=== PATIENT | male | born 1955 | race Caucasian/White ===

== ENCOUNTER 2017-12-23 11:33 | Inpatient (IN) | payer OTHER ==
[2017-12-23] MEDS ORDERED: IBUPROFEN 400 MG TAB ONE (12:15)
[2017-12-23] MEDS ORDERED: NA CHLORIDE 0.9% 1,000 ML ONE ×3 (12:15→15:45)
[2017-12-23] MEDS ORDERED: IBUPROFEN 200 MG TAB PO ONE (12:15)
[2017-12-23 12:20] LABS: Urine Blood 2+ (NEG); Urine Glucose NEGATIVE (NEG); Urine Protein 2+ (NEG); Urine pH 5.5 (5.0-7.0)
[2017-12-23] MEDS ORDERED: CEFTRIAXONE/SWI 1gm 1 GM/10 ML SYR ONE (12:29)
[2017-12-23 12:30] LABS: Potassium 4.1 mmol/L (3.5-5.1)
[2017-12-23 12:33] LABS: Absolute Lymphocytes (CBC) 0.7 K/uL (0.7-4.9); Absolute Neutrophil 15.6 K/uL (1.8-8.0); Basophils % 0.5 % (0-1.3); Eosinophils % 0.2 % (0-4.4); Lymphocytes % 4.2 % (15.3-44.8); MCV 88.9 fL (80-100); MPV 8.3 fL (7.6-11.3); Monocytes % 5.6 % (3.3-12.3); RBC Red Blood Cell Count 4.72 M/uL (4.33-5.43)
[2017-12-23 12:37] LABS: Urine Bacteria >50 /HPF (NONE SEEN)
[2017-12-23 12:38] LABS: Urine Culture Reflex Order REFLEXED
[2017-12-23] MEDS ORDERED: NA CHLORIDE 0.9% 500 ML ONE (13:03)
--- NOTE | 2017-12-23 13:05 | EDPHYS ---
Physician Documentation [facility] Name: Addison Kaiser Age: 61 yrs Sex: Male : 1955 Arrival Date: 12/23/2017 Time: 11:37 Bed 5 Private MD: Tramaine Nur H ED Physician Edgar Louis HPI: 12/23 12:59 This 61 yrs old Male presents to ER via Ambulatory with complaints of Urinary kb Problem, Fever. 12:59 The patient presents with urinary symptoms, dysuria, frequency. Onset: The kb symptoms/episode began/occurred yesterday. Modifying factors: The symptoms are alleviated by nothing, the symptoms are aggravated by urinating. Associated signs and symptoms: Pertinent positives: dysuria, fever, urinary frequency, Pertinent negatives: constipation, cramping, diarrhea, dyspareunia, hematuria, nausea, vaginal bleeding, vaginal discharge, vomiting. Severity of symptoms: At their worst the symptoms were moderate, in the emergency department the symptoms are unchanged. The patient has not experienced similar symptoms in the past. The patient has not recently seen a physician. Historical: - Allergies: 11:45 No Known Allergies; aj - Home Meds: 11:45 None [Active]; aj - PMHx: 11:45 None; aj - PSHx: 11:45 TBI; aj - Immunization history:: Adult Immunizations up to date. - Social history:: Smoking status: Patient/guardian denies using tobacco. - Ebola Screening: : Patient negative for fever greater than or equal to 101.5 degrees Fahrenheit, and additional compatible Ebola Virus Disease symptoms Patient denies exposure to infectious person Patient denies travel to an Ebola-affected area in the 21 days before illness onset No symptoms or risks identified at this time. ROS: 12:58 Neck: Negative for injury, pain, and swelling, Cardiovascular: Negative for chest pain, kb palpitations, and edema, Respiratory: Negative for shortness of breath, cough, wheezing, and pleuritic chest pain, Abdomen/GI: Negative for abdominal pain, nausea, vomiting, diarrhea, and constipation, Back: Negative for injury and pain, MS/Extremity: Negative for injury and deformity, Skin: Negative for injury, rash, and discoloration, Neuro: Negative for headache, weakness, numbness, tingling, and seizure. 12:58 Constitutional: Positive for fever, Negative for body aches, chills, fatigue, malaise, poor PO intake, weight loss. 12:58 : Positive for urinary symptoms, urinary frequency, burning with urination. Exam: 12:58 Constitutional: This is a well developed, well nourished patient who is awake, alert, kb and in no acute distress. Head/Face: Normocephalic, atraumatic. Chest/axilla: Normal chest wall appearance and motion. Nontender with no deformity. No lesions are appreciated. Cardiovascular: Regular rate and rhythm with a normal S1 and S2. No gallops, murmurs, or rubs. Normal PMI, no JVD. No pulse deficits. Respiratory: Lungs have equal breath sounds bilaterally, clear to auscultation and percussion. No rales, rhonchi or wheezes noted. No increased work of breathing, no retractions or nasal flaring. Abdomen/GI: Soft, non-tender, with normal bowel sounds. No distension or tympany. No guarding or rebound. No evidence of tenderness throughout. Back: No spinal tenderness. No costovertebral tenderness. Full range of motion. Skin: Warm, dry with normal turgor. Normal color with no rashes, no lesions, and no evidence of cellulitis. MS/ Extremity: Pulses equal, no cyanosis. Neurovascular intact. Full, normal range of motion. Neuro: Awake and alert, GCS 15, oriented to person, place, time, and situation. Cranial nerves II-XII grossly intact. Motor strength 5/5 in all extremities. Sensory grossly intact. Cerebellar exam normal. Normal gait. Vital Signs: 11:45 BP 97 / 67; Pulse 122; Resp 20; Temp 99.8; Pulse Ox 99% on R/A; Weight 78.02 kg; Height aj 5 ft. 9 in. (175.26 cm); 11:50 BP 117 / 20; Pulse 120; Resp 18; Pulse Ox 100% on R/A; hj 12:13 BP 110 / 65; Pulse 114; Resp 18; Pulse Ox 99% on R/A; hj 12:41 BP 112 / 69; Pulse 110; Resp 18; Pulse Ox 99% on R/A; hj 13:13 BP 119 / 78; Pulse 112; Resp 18; Pulse Ox 100% on R/A; hj 14:06 BP 98 / 71; Pulse 117; Resp 18; Pulse Ox 97% on R/A; hj 14:25 BP 101 / 69; Pulse 115; Resp 18; Temp 102.8(O); Pulse Ox 98% on R/A; la1 14:55 BP 102 / 72; Pulse 118; Resp 18; Pulse Ox 98% on R/A; hj 15:15 BP 100 / 69; Pulse 116; Resp 18; Temp 99.6(O); Pulse Ox 98% on R/A; hj 15:46 BP 100 / 65; Pulse 105; Resp 18; Pulse Ox 98% on R/A; hj 11:45 Body Mass Index 25.40 (78.02 kg, 175.26 cm) aj 14:06 NS running, 600 ml left from the 30mg/kg order; hj MDM: 11:48 Patient medically screened. kb 12:58 Data reviewed: vital signs, nurses notes. Data interpreted: Pulse oximetry: on room air kb is 99 %. Interpretation: normal. 13:00 Counseling: I had a detailed discussion with the patient and/or guardian regarding: the kb historical points, exam findings, and any diagnostic results supporting the discharge/admit diagnosis, lab results, the need for further work-up and treatment in the hospital. 13:03 Physician consultation: Riley Paulino MD was called at 13:03, message left. kb 12/23 11:51 Order name: Urine Culture kb 12/23 11:51 Order name: Urine Microscopic Only; Complete Time: 12:42 kb 12/23 11:51 Order name: CBC with Diff; Complete Time: 13:28 kb 12/23 11:51 Order name: Basic Metabolic Panel; Complete Time: 12:31 kb 12/23 11:51 Order name: Lactate; Complete Time: 12:44 kb 12/23 11:51 Order name: Blood Culture Adult (2) kb 12/23 11:51 Order name: Procalcitonin; Complete Time: 12:53 kb 12/23 12:08 Order name: Urine Dipstick--Ancillary (enter results); Complete Time: 12:20 eb 12/23 12:38 Order name: CBC Smear Scan; Complete Time: 13:28 EDMS 12/23 13:13 Order name: Troponin (emerg Dept Use Only); Complete Time: 13:59 kb 12/23 13:13 Order name: LFT's; Complete Time: 13:59 kb 12/23 15:42 Order name: Lactate Sepsis 2 HR Follow-up; Complete Time: 15:46 EDIL 12/23 11:51 Order name: Urine Dipstick-Ancillary (obtain specimen); Complete Time: 12:03 kb 12/23 11:51 Order name: IV Start; Complete Time: 12:07 kb 12/23 13:13 Order name: EKG; Complete Time: 13:14 kb 12/23 13:13 Order name: EKG - Nurse/Tech; Complete Time: 13:26 kb Administered Medications: 12:00 Drug: NS 0.9% 1000 ml Route: IV; Rate: 1000 ml; Site: left antecubital; hj 15:57 Follow up: IV Status: Completed infusion hj 12:00 Drug: Ibuprofen 600 mg Route: PO; hj 12:21 Follow up: Response: No adverse reaction; Temperature is decreased hj 12:20 Drug: Rocephin - (cefTRIAXone) 1 grams Route: IVPB; Infused Over: 30 mins; Site: left hj antecubital; 12:29 Follow up: IV Status: Completed infusion hj 13:00 Drug: NS 0.9% (30 ml/kg) 30 ml/kg Route: IV; Rate: bolus; Site: right antecubital; la1 15:47 Follow up: IV Status: Completed infusion hj 14:25 Drug: Tylenol 1000 mg Route: PO; la1 15:21 Follow up: Response: No adverse reaction; Temperature is decreased Disposition: 17:36 Co-signature as Attending Physician, Edgar Louis MD. Disposition: 12/23/17 13:04 Hospitalization ordered by Bernardo Weller for Inpatient Admission. Preliminary diagnosis are Urinary tract infection, site not specified, Sepsis, unspecified organism. - Bed requested for Telemetry/MedSurg (Inpatient). - Status is Inpatient Admission. hj - Condition is Stable. - Problem is new. - Symptoms are unchanged. UTI on Admission? No Signatures: Dispatcher [employer] EDIL Shawna Tabares FNP-C FNP-Vijaya Little RN Olivia Alvarado RN RN aj Attema, Lee, RN RN la1 Matt Escalante RN RN hj Starr, Gregory, MD MD Corrections: (The following items were deleted from the chart) 13:30 13:04 Hospitalization Ordered by Riley Paulino MD for Inpatient Admission. Preliminary kb diagnosis is Urinary tract infection, site not specified; Sepsis, unspecified organism. Bed requested for Telemetry/MedSurg (Inpatient). Status is Inpatient Admission. Condition is Stable. Problem is new. Symptoms are unchanged. UTI on Admission? No. kb 15:40 13:30 12/23/2017 13:04 Hospitalization Ordered by Bernardo Weller MD for Inpatient dw Admission. Preliminary diagnosis is Urinary tract infection, site not specified; Sepsis, unspecified organism. Bed requested for Telemetry/MedSurg (Inpatient). Status is Inpatient Admission. Condition is Stable. Problem is new. Symptoms are unchanged. UTI on Admission? No. kb 16:03 15:40 12/23/2017 13:04 Hospitalization Ordered by Bernardo Weller MD for Inpatient hj Admission. Preliminary diagnosis is Urinary tract infection, site not specified; Sepsis, unspecified organism. Bed requested for Telemetry/MedSurg (Inpatient). Status is Inpatient Admission. Condition is Stable. Problem is new. Symptoms are unchanged. UTI on Admission? No. dw
--- NOTE | 2017-12-23 13:05 | ER ---
Nurse's Notes [facility] Name: Addison Kaiser Age: 61 yrs Sex: Male : 1955 Arrival Date: 12/23/2017 Time: 11:37 Bed 5 Private MD: Tramaine Nur H Diagnosis: Urinary tract infection, site not specified;Sepsis, unspecified organism Presentation: 12/23 11:44 Presenting complaint: Patient states: Burning with urination and fever since yesterday. aj Transition of care: patient was not received from another setting of care. Onset of symptoms was December 21, 2017. Risk Assessment: Do you want to hurt yourself or someone else? Patient reports no desire to harm self or others. Care prior to arrival: None. 11:44 Method Of Arrival: Ambulatory 11:44 Acuity: LILIANA 3 hj 11:45 Initial Sepsis Screen: Does the patient meet any 2 criteria? HR > 90 bpm. No. Patient's aj initial sepsis screen is negative. Does the patient have a suspected source of infection? Yes: Dysuria/Frequency/Urgency/UTI. 11:47 Note Tylenol taken at 0730 CANDLE [employer]. aj Triage Assessment: 11:45 General: Appears in no apparent distress. uncomfortable, Behavior is calm, cooperative, aj appropriate for age. Pain: Denies pain. 11:45 Neuro: Level of Consciousness is awake, alert, obeys commands, Oriented to person, aj place, time, situation, Appropriate for age. Respiratory: Airway is patent Respiratory effort is even, unlabored, Respiratory pattern is regular, symmetrical. : Reports burning with urination, urinary frequency. Derm: Skin is intact, is healthy with good turgor, Skin is dry, Skin is normal, Skin temperature is warm. Historical: - Allergies: 11:45 No Known Allergies; aj - Home Meds: 11:45 None [Active]; aj - PMHx: 11:45 None; aj - PSHx: 11:45 TBI; aj - Immunization history:: Adult Immunizations up to date. - Social history:: Smoking status: Patient/guardian denies using tobacco. - Ebola Screening: : Patient negative for fever greater than or equal to 101.5 degrees Fahrenheit, and additional compatible Ebola Virus Disease symptoms Patient denies exposure to infectious person Patient denies travel to an Ebola-affected area in the 21 days before illness onset No symptoms or risks identified at this time. Screenin:50 Abuse screen: Denies threats or abuse. Denies injuries from another. Nutritional hj screening: No deficits noted. Tuberculosis screening: No symptoms or risk factors identified. Fall Risk None identified. Assessment: 11:51 General: Appears in no apparent distress. uncomfortable, Behavior is calm, cooperative, hj appropriate for age. Pain: Denies pain. Neuro: Level of Consciousness is awake, alert, obeys commands, Oriented to person, place, time, situation, Appropriate for age. Cardiovascular: Capillary refill < 3 seconds Patient's skin is warm and dry. Respiratory: Airway is patent Respiratory effort is even, unlabored, Respiratory pattern is regular, symmetrical. GI: No signs and/or symptoms were reported involving the gastrointestinal system. : Reports. EENT: No signs and/or symptoms were reported regarding the EENT system. Derm: No signs and/or symptoms reported regarding the dermatologic system. Musculoskeletal: No signs and/or symptoms reported regarding the musculoskeletal system. 12:41 Reassessment: Patient and/or family updated on plan of care and expected duration. Pain hj level reassessed. Patient is alert, oriented x 3, equal unlabored respirations, skin warm/dry/pink. awaiting results and POC;. 13:13 Reassessment: Patient and/or family updated on plan of care and expected duration. Pain hj level reassessed. Patient is alert, oriented x 3, equal unlabored respirations, skin warm/dry/pink. awaiting room placement;. 14:34 Reassessment: Patient and/or family updated on plan of care and expected duration. Pain hj level reassessed. Patient is alert, oriented x 3, equal unlabored respirations, skin warm/dry/pink. BP is on the 90's over 80's; Md notified;. 14:37 Reassessment: called Dr. Paulino for [employer] orders; left a voicemail to call back and hj put orders in [employer];. 14:54 Reassessment: Patient and/or family updated on plan of care and expected duration. Pain hj level reassessed. Patient is alert, oriented x 3, equal unlabored respirations, skin warm/dry/pink. 15:13 Reassessment: called to Dr. Weller covering for Dr. Paulino, requested to put orders to [facility], call transferred to MARTIN Matos;. 15:33 Reassessment: orders in [facility]; support service tech informed ready to move;. Vital Signs: 11:45 BP 97 / 67; Pulse 122; Resp 20; Temp 99.8; Pulse Ox 99% on R/A; Weight 78.02 kg; Height aj 5 ft. 9 in. (175.26 cm); 11:50 BP 117 / 20; Pulse 120; Resp 18; Pulse Ox 100% on R/A; hj 12:13 BP 110 / 65; Pulse 114; Resp 18; Pulse Ox 99% on R/A; hj 12:41 BP 112 / 69; Pulse 110; Resp 18; Pulse Ox 99% on R/A; hj 13:13 BP 119 / 78; Pulse 112; Resp 18; Pulse Ox 100% on R/A; hj 14:06 BP 98 / 71; Pulse 117; Resp 18; Pulse Ox 97% on R/A; hj 14:25 BP 101 / 69; Pulse 115; Resp 18; Temp 102.8(O); Pulse Ox 98% on R/A; la1 14:55 BP 102 / 72; Pulse 118; Resp 18; Pulse Ox 98% on R/A; hj 15:15 BP 100 / 69; Pulse 116; Resp 18; Temp 99.6(O); Pulse Ox 98% on R/A; hj 15:46 BP 100 / 65; Pulse 105; Resp 18; Pulse Ox 98% on R/A; hj 11:45 Body Mass Index 25.40 (78.02 kg, 175.26 cm) aj 14:06 NS running, 600 ml left from the 30mg/kg order; hj ED Course: 11:37 Patient arrived in ED. mr 11:37 Tramaine Nur DO is Private Physician. mr 11:45 Triage completed. aj 11:45 Arm band placed on right wrist. Patient placed in an exam room. aj 11:47 [facility]ares [facility]-C [facility] kb 11:47 Edgar Louis MD is Attending Physician. kb 11:48 Matt Escalante, JACK is Primary Nurse. hj 11:50 Patient has correct armband on for positive identification. Placed in gown. Bed in low hj position. Call light in reach. Side rails up X 1. Adult w/ patient. 12:00 Initial lab(s) drawn, by me, sent to lab. Inserted saline lock: 22 gauge in left hj antecubital area, using aseptic technique. Blood collected. 12:00 First set of blood cultures drawn by me. hj 12:03 Urine collected: clean catch specimen, cloudy, kahlil colored. jb1 12:15 Second set of blood cultures drawn by me. hj 13:03 Riley Paulino MD is Hospitalizing Provider. kb 13:30 Bernardo Weller MD is Hospitalizing Provider. kb 15:56 No provider procedures requiring assistance completed. Patient admitted, IV remains in hj place. intact. Administered Medications: 12:00 Drug: NS 0.9% 1000 ml Route: IV; Rate: 1000 ml; Site: left antecubital; hj 15:57 Follow up: IV Status: Completed infusion hj 12:00 Drug: Ibuprofen 600 mg Route: PO; hj 12:21 Follow up: Response: No adverse reaction; Temperature is decreased hj 12:20 Drug: Rocephin - (cefTRIAXone) 1 grams Route: IVPB; Infused Over: 30 mins; Site: left hj antecubital; 12:29 Follow up: IV Status: Completed infusion hj 13:00 Drug: NS 0.9% (30 ml/kg) 30 ml/kg Route: IV; Rate: bolus; Site: right antecubital; la1 15:47 Follow up: IV Status: Completed infusion hj 14:25 Drug: Tylenol 1000 mg Route: PO; la1 15:21 Follow up: Response: No adverse reaction; Temperature is decreased Outcome: 13:04 Decision to Hospitalize by Provider. kb 15:56 Admitted to Med/surg accompanied by tech, family with patient, via wheelchair, room hj 229, with chart, Report called to JACK Bai 15:56 Condition: stable 15:56 Instructed on the need for admit, Demonstrated understanding of instructions. 16:03 Patient left the ED. Signatures: Kavon Ritter jb1 Shawna Tabares, DIRECTOR OF LABORATORY OPERATIONS-C DIRECTOR OF LABORATORY OPERATIONS-Ckb Olivia Moe RN RN aj Rivera, Maria mr Attema, Lee, RN RN la1 Joaquin, Henry, RN RN Corrections: (The following items were deleted from the chart) 11:46 11:44 Initial Sepsis Screen: Does the patient meet any 2 criteria? No. Patient's aj initial sepsis screen is negative. Does the patient have a suspected source of infection? No. Patient's initial sepsis screen is negative. saleem 12:13 11:44 Acuity: LILIANA 2 aj 14:09 14:06 BP 100 / 71; Pulse 117bpm; Resp 18bpm; Pulse Ox 97% RA; [facility] 14:39 14:37 Reassessment: called Dr. Paulino for [facility] orders; [facility]
[2017-12-23 13:27] LABS: Blood Morphology Comment NOT SEEN (NOT SEEN); Platelet Estimate ADEQ; Urine White Blood Cell Casts OK
[2017-12-23 13:57] LABS: ALT/SGPT 24 U/L (12-78); AST/SGOT 16 U/L (15-37); Albumin 3.5 g/dL (3.4-5.0); Alkaline Phosphatase 53 U/L (45-117); Bilirubin Direct 0.5 mg/dL (0-0.2); Bilirubin Total 1.9 mg/dL (0.2-1.0); Protein, Total 7.4 g/dL (6.4-8.2); Troponin (Emerg Dept Use Only) < 0.02 ng/mL (0.0-0.045)
[2017-12-23] MEDS ORDERED: ACETAMINOPHEN 500 MG TAB ONE (14:26)
[2017-12-23] MEDS ORDERED: NA CHLORIDE 0.9% 1,000 ML IV SCH (16:00)
[2017-12-23 16:54] VITALS: BMI 26.6
[2017-12-23] MEDS ORDERED: NA CHLORIDE 0.9% 500 ML IV ONE (16:58)
[2017-12-23] MEDS ORDERED: INFLUENZA VACCINE (for 3y+) 0.5 ML DOSE IMVAC ONE (17:00)
--- NOTE | 2017-12-23 17:02 | P.HP ---
Certification for Inpatient Patient admitted to: Inpatient With expected LOS: >2 Midnights Patient will require the following post-hospital care: None Practitioner: I am a practitioner with admitting privileges, knowledge of patient current condition, hospital course, and medical plan of care. Services: Services provided to patient in accordance with Admission requirements found in Title 42 Section 412.3 of the Code of Federal Regulations Patient History Date of Service: 12/23/17 Reason for admission: uti History of Present Illness: 61 y/o man otherwise healthy presented to ER fever chills x 2 days, muscle aches. He aslo has mild dysuria with burning for several days. Temp was 102.6. He was found to have UTI and sepsis lactic acid and hypotension. He was given Rocephin 1 g IV and NS at ER, with improvement. Last lactic was normal. 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 moist/pink, EOMI, Sclerae nonicteric Neck: Supple, 2+ carotid pulse no bruit, No LAD, Without JVD or thyroid abnormality Respiratory: Clear to auscultation bilaterally, Normal air movement Cardiovascular: Regular rate/rhythm, Normal S1 S2 Gastrointestinal: Normal bowel sounds, No tenderness Musculoskeletal: No tenderness Integumentary: No rashes Neurological: Normal gait, Normal speech, Normal strength at 5/5 x4 extr, Normal tone, Normal affect Lymphatics: No axilla or inguinal lymphadenopathy - Studies Laboratory Data (last 24 hrs) 12/23/17 12:00: Total Bilirubin 1.9 H, AST 16, ALT 24, Alkaline Phosphatase 53 12/23/17 12:00: Sodium 140, Potassium 4.1, BUN 22 H, Creatinine 1.60 H, Glucose 141 H 12/23/17 12:00: WBC 17.5 H, Hgb 14.6, Hct 42.0, Plt Count 180 Assessment and Plan - Problems (Diagnosis) (1) Sepsis associated hypotension Current Visit: Yes Status: Acute (2) UTI (urinary tract infection), bacterial Current Visit: Yes Status: Acute - Plan --Rocephin 1 g IV a12H --NS 120 ml --Bolus one more 500 ml NS - Advance Directives Does patient have a Living Will: No Does patient have a Durable POA for Healthcare: No
[2017-12-23] MEDS: NA CHLORIDE 0.9% 1,000 ML IV SCH ×2 (17:15→22:35)
[2017-12-23 17:26] LABS: Urine Appearance CLOUDY; Urine Bilirubin NEGATIVE (NEG); Urine Blood TRACE (NEG); Urine Color DK YELLOW; Urine Glucose NEGATIVE (NEG); Urine Protein 1+ (NEG); Urine Specific Gravity 1.025 (1.005-1.030); Urine pH 5.5 (5.0-7.0)
[2017-12-23 17:28] LABS: Urine Microscopic Reflex ORDER UMIC
[2017-12-23 18:41] LABS: Urine Bacteria 20-50 /HPF (NONE SEEN); Urine RBC <5 /HPF (NONE SEEN)
[2017-12-23 18:42] LABS: Urine Amorphous Sediment 2+ /HPF (NONE SEEN); Urine Culture Reflex Order REFLEXED
[2017-12-23] MEDS: CEFTRIAXONE/SWI 1gm 1 GM/10 ML SYR IV SCH (20:17)
[2017-12-23] MEDS ORDERED: TAMSULOSIN 0.4 MG SR CAP PO ONE (20:56)
[2017-12-24] MEDS: ACETAMINOPHEN 325 MG TABLET PO PRN ×3 (00:58→17:59)
[2017-12-24] MEDS: NA CHLORIDE 0.9% 1,000 ML IV SCH ×3 (06:02→16:38)
[2017-12-24 06:05] LABS: Absolute Lymphocytes (CBC) 0.8 K/uL (0.7-4.9); Absolute Monocytes 0.8 K/uL (0.1-1.3); Basophils % 0.2 % (0-1.3); Eosinophils % 0.3 % (0-4.4); Hematocrit 35.3 % (39.6-49.0); Lymphocytes % 4.9 % (15.3-44.8); MCH 30.8 pg (27.0-35.0); MCV 89.8 fL (80-100); MPV 8.1 fL (7.6-11.3); Monocytes % 4.9 % (3.3-12.3); RBC Red Blood Cell Count 3.94 M/uL (4.33-5.43)
[2017-12-24 06:37] LABS: Albumin 2.6 g/dL (3.4-5.0); Bilirubin Total 1.1 mg/dL (0.2-1.0); Potassium 4.5 mmol/L (3.5-5.1); Protein, Total 5.8 g/dL (6.4-8.2)
--- NOTE | 2017-12-24 06:46 | EKG ---
Test Date: 2017-12-23 Test Time: 13:23:34 Cutter Aluminum Sheet: JOSR MEASUREMENT RESULTS: Intervals: Rate: 112 IN: 140 QRSD: 88 QT: 308 QTc: 420 [place]: P: 49 IN: 140 QRS: 10 T: 19 INTERPRETIVE STATEMENTS: Sinus tachycardia Otherwise normal ECG Compared to ECG 06/29/2017 13:40:33 Sinus rhythm no longer present Electronically Signed On 12-24-17 06:45:04 CDT by Fernando Valle
[2017-12-24] MEDS: CEFTRIAXONE/SWI 1gm 1 GM/10 ML SYR IV SCH ×2 (08:48→21:18)
--- NOTE | 2017-12-24 13:16 | P.PN ---
Subjective Date of Service: 12/24/17 Chief Complaint: uti feels better, still has frequency Physical Examination - Vital Signs Temperature: 100.4 F Blood Pressure: 125/55 Pulse: 104 Respirations: 16 Pulse Ox (%): 96 - Physical Exam General: Alert, In no apparent distress HEENT: Atraumatic, PERRLA, EOMI Neck: Supple, JVD not distended Respiratory: Clear to auscultation bilaterally, Normal air movement Cardiovascular: Regular rate/rhythm, Normal S1 S2 Gastrointestinal: Normal bowel sounds, No tenderness Musculoskeletal: No tenderness Integumentary: No rashes Neurological: Normal speech, Normal tone, Normal affect Lymphatics: No axilla or inguinal lymphadenopathy - Studies Laboratory Data (last 24 hrs) 12/23/17 12:00: Total Bilirubin 1.9 H, AST 16, ALT 24, Alkaline Phosphatase 53 Medications List Reviewed: Yes Assessment And Plan - Current Problems (Diagnosis) (1) Sepsis associated hypotension Current Visit: Yes Status: Acute (2) UTI (urinary tract infection), bacterial Current Visit: Yes Status: Acute - Plan --Rocephin 1 g IV a12H --NS 120 ml --CT abd pelvis today --Blood Cx Ucx pending; Ucx GNR
--- NOTE | 2017-12-24 18:41 | RAD REPORT ---
EXAM DESCRIPTION: CTAbdomen Pelvis W Contrast - 12/24/2017 5:48 pm CLINICAL HISTORY: Abdominal pain. abd pain COMPARISON: No comparisons TECHNIQUE: Biphasic CT imaging of the abdomen and pelvis was performed with 100 ml non-ionic IV cont rast. All CT scans are performed using dose optimization technique as appropriate and may include automated exposure control or mA/KV adjustment according to patient size. FINDINGS: The lung bases are clear.Trace pleural fluid is present bilaterally. The liver, spleen, pancreas, adrenal glands and kidneys are within normal limits. No bowel obstruction, free air, free fluid or abscess. The appendix is normal. Sigmoid diverticulosi s coli is present without diverticulitis. No evidence of significant lymphadenopathy. No suspicious bony findings. Significant prostatomegaly is seen. Mild inflammatory fat stranding in the pelvis anteriorly. IMPRESSION: Significant prostatomegaly with mild inflammation in the anterior pelvic fat could indic ate bladder or prostate infection. Sigmoid diverticulosis coli without diverticulitis.
[2017-12-24 23:36] VITALS: O2SAT 97
[2017-12-25] MEDS: NA CHLORIDE 0.9% 1,000 ML IV SCH ×2 (00:25→08:44)
[2017-12-25 05:34] LABS: Absolute Lymphocytes (CBC) 1.2 K/uL (0.7-4.9); Absolute Neutrophil 10.2 K/uL (1.8-8.0); Basophils % 0.3 % (0-1.3); Eosinophils % 3.4 % (0-4.4); Hematocrit 32.6 % (39.6-49.0); Lymphocytes % 9.1 % (15.3-44.8); MCH 31.2 pg (27.0-35.0); MCV 88.5 fL (80-100); MPV 8.7 fL (7.6-11.3); Monocytes % 7.6 % (3.3-12.3); RBC Red Blood Cell Count 3.68 M/uL (4.33-5.43)
[2017-12-25 05:41] LABS: Albumin 2.4 g/dL (3.4-5.0); Bilirubin Total 0.6 mg/dL (0.2-1.0); Potassium 3.5 mmol/L (3.5-5.1); Protein, Total 5.7 g/dL (6.4-8.2)
[2017-12-25] MEDS: CEFTRIAXONE/SWI 1gm 1 GM/10 ML SYR IV SCH (08:43)
--- NOTE | 2017-12-25 17:55 | P.PN ---
Subjective Date of Service: 12/25/17 Chief Complaint: uti Doing much better today; less urine frequency, fever last night Physical Examination - Vital Signs Temperature: 99.4 F Blood Pressure: 132/80 Pulse: 64 Respirations: 18 Pulse Ox (%): 96 - Physical Exam General: Alert, In no apparent distress HEENT: Atraumatic, PERRLA, EOMI Neck: Supple, JVD not distended Respiratory: Clear to auscultation bilaterally, Normal air movement Cardiovascular: Regular rate/rhythm, Normal S1 S2 Gastrointestinal: Normal bowel sounds, No tenderness Musculoskeletal: No tenderness Integumentary: No rashes Neurological: Normal speech, Normal tone, Normal affect Lymphatics: No axilla or inguinal lymphadenopathy - Studies Microbiology Data (last 24 hrs): 12/23/17 12:00 Clean Catch Urine Bard Count - Final >100,000 CFU/ML. 12/23/17 12:00 Clean Catch Urine - Final Enterobacter Aerogenes Medications List Reviewed: Yes Assessment And Plan - Current Problems (Diagnosis) (1) Sepsis associated hypotension Onset Date: 12/25/17 Current Visit: Yes Status: Acute (2) UTI (urinary tract infection), bacterial Onset Date: 12/25/17 Current Visit: Yes Status: Acute (3) BPH (benign prostatic hyperplasia) Current Visit: Yes Status: Chronic Qualifiers: Lower urinary tract symptom presence: symptoms present Lower urinary tract symptom detail: urinary frequency Qualified Code(s): N40.1 - Benign prostatic hyperplasia with lower urinary tract symptoms; R35.0 - Frequency of micturition - Plan --DC Rocephin 1 g IV a12H, start Levaquin --DC NS 120 ml --Start Flomax for BPH --Enterococus Ucx --May DC home tomorrow, f/u Dr Nur
[2017-12-25] MEDS: ACETAMINOPHEN 325 MG TABLET PO PRN (19:19)
[2017-12-25] MEDS ORDERED: TAMSULOSIN 0.4 MG SR CAP PO SCH (21:00)
[2017-12-26 06:03] LABS: Absolute Lymphocytes (CBC) 0.8 K/uL (0.7-4.9); Absolute Monocytes 0.8 K/uL (0.1-1.3); Absolute Neutrophil 7.2 K/uL (1.8-8.0); Basophils % 0.5 % (0-1.3); Eosinophils % 2.6 % (0-4.4); Hematocrit 35.8 % (39.6-49.0); Lymphocytes % 8.8 % (15.3-44.8); MCH 30.7 pg (27.0-35.0); MCV 89.5 fL (80-100); MPV 8.5 fL (7.6-11.3); Monocytes % 8.4 % (3.3-12.3)
[2017-12-26 06:27] LABS: Albumin 2.6 g/dL (3.4-5.0); Bilirubin Total 0.6 mg/dL (0.2-1.0); Potassium 3.9 mmol/L (3.5-5.1); Protein, Total 6.2 g/dL (6.4-8.2)
--- NOTE | 2017-12-26 07:46 | ECHO ---
HEIGHT: 5 ft 9 in WEIGHT: 180 lb 8 oz DATE OF STUDY: 12/25/[address]: Debra Go MD 2-DIMENSIONAL: YES M.MODE: YES DOPPLER: YES COLOR FLOW: YES TDS: PORTABLE: DEFINITY: BUBBLE STUDY: DIAGNOSIS: HYPOTENSION CARDIAC HISTORY: CATHERIZATION: NO SURGERY: NO PROSTHETIC VALVE: NO PACEMAKER: NO MEASUREMENTS (cm) DIASTOLIC (NORMALS) SYSTOLIC (NORMALS) IVSd 1.0 (0.6-1.2) LA Diam 4.0 (1.9-4.0) LVEF 65% LVIDd 5.0 (3.5-5.7) LVIDs 3.2 (2.0-3.5) %FS 36% LVPWd 0.9 (0.6-1.2) Ao Diam 3.0 (2.0-3.7) 2 DIMENSIONAL ASSESSMENT: RIGHT ATRIUM: NORMAL LEFT ATRIUM: NORMAL RIGHT VENTRICLE: NORMAL LEFT VENTRICLE: NORMAL TRICUSPID VALVE: NORMAL MITRAL VALVE: NORMAL PULMONIC VALVE: NORMAL AORTIC VALVE: NORMAL PERICARDIAL EFFUSION: NONE AORTIC ROOT: NORMAL LEFT VENTRICULAR WALL MOTION: NORMAL DOPPLER/COLOR FLOW: MILD MITRAL AND TRICUSPID REGURGITATION. ESTIMATED RIGHT VENTRICULAR SYSTOLIC PRESSURE 48 mmHg (MILD TO MODERATE PULMONARY HYPERTENSION). COMMENTS: NORMAL 2-DIMENSIONAL ECHOCARDIOGRAM. MILD MITRAL AND TRICUSPID REGURGITATION. MILD TO MODERATE PULMONARY HYPERTENSION. TECHNOLOGIST: LOKI KAPADIA
[2017-12-26] MEDS ORDERED: levoFLOXacin 500 MG TAB PO SCH (09:00)
[2017-12-26] MEDS ORDERED: INFLUENZA VACCINE (for 3y+) 0.5 ML DOSE IMVAC ONE (10:00)
--- NOTE | 2017-12-26 10:00 | P.DS ---
Admission Date: 12/23/17 Discharge Date: 12/26/17 Primary Care Provider: Dr. Nur Disposition: ROUTINE DISCHARGE Discharge Condition: GOOD Reason for Admission: uti Procedures: CT scan: COMPARISON: No comparisons TECHNIQUE: Biphasic CT imaging of the abdomen and pelvis was performed with 100 ml non-ionic IV contrast. All CT scans are performed using dose optimization technique as appropriate and may include automated exposure control or mA/KV adjustment according to patient size. FINDINGS: The lung bases are clear.Trace pleural fluid is present bilaterally. The liver, spleen, pancreas, adrenal glands and kidneys are within normal limits. No bowel obstruction, free air, free fluid or abscess. The appendix is normal. Sigmoid diverticulosis coli is present without diverticulitis. No evidence of significant lymphadenopathy. No suspicious bony findings. Significant prostatomegaly is seen. Mild inflammatory fat stranding in the pelvis anteriorly. IMPRESSION: Significant prostatomegaly with mild inflammation in the anterior pelvic fat could indicate bladder or prostate infection. Sigmoid diverticulosis coli without diverticulitis. Echocardiogram: EF 65%LEFT VENTRICULAR WALL MOTION: NORMAL DOPPLER/COLOR FLOW: MILD MITRAL AND TRICUSPID REGURGITATION. ESTIMATED RIGHT VENTRICULAR SYSTOLIC PRESSURE 48 mmHg (MILD TO MODERATE PULMONARY HYPERTENSION). COMMENTS: NORMAL 2-DIMENSIONAL ECHOCARDIOGRAM. MILD MITRAL AND TRICUSPID REGURGITATION. MILD TO MODERATE PULMONARY HYPERTENSION. Medical problem list: Sepsis with hypotension secondary to UTI, urine culture positive for enterobacter Enlarged prostate per CT scan likely underlying BPH Mild to moderate pulmonary hypertension noted on echocardiogram Suspect underlying obstructive sleep apnea Brief History of Present Illness: 61-year-old male present emergency room with fever, chills. Patient was found to have a low blood pressure. Patient found to have UTI and sepsis. Patient admitted for treatment. Hospital Course: Patient presented with fever and chills. Patient found to have Sepsis related to UTI. He was also found to have enlarged prostate per CT scan. He likely has underlying BPH. There is family history of prostate cancer. During the course of his stay patient received IV antibiotic therapy and fluids. Urine culture positive for Enterbacter. Blood cultures negative. At discharge he was without any significant abdominal pain, fever, chills. Sepsis resolved. Echocardiogram revealed mild to moderate pulmonary hypertension. Blood pressures remain stable. At discharge he will continue with Levaquin 500 mg one pill daily for 7 days and Flomax 0.4 mg one pill every night. Recommendation is for the patient to establish care with Urology to further address. Recommendation is to repeat urine culture after treatment to monitor resolution. Recommendation is to have his PSA evaluated as well. This can be done with Urology. Echocardiogram revealed mild to moderate pulmonary hypertension. Recommendation is for the patient to follow up with pulmonology to further assess. Patient may have underlying sleep apnea as well. This can be further addressed with a sleep study. Vital Signs/Physical Exam: Temp Pulse Resp BP Pulse Ox 99 F 71 16 113/62 95 12/26/17 04:00 12/26/17 04:00 12/26/17 04:00 12/26/17 04:00 12/26/17 04:00 General: Alert, In no apparent distress, Oriented x3, Cooperative HEENT: Atraumatic, Mucous membr. moist/pink Neck: Supple, No Thyromegaly Respiratory: Clear to auscultation bilaterally, Normal air movement Cardiovascular: Normal pulses, Regular rate/rhythm Gastrointestinal: Normal bowel sounds, Soft and benign, Non-distended, No tenderness, No masses, No rebound, No guarding Musculoskeletal: No erythema, No tenderness, No warmth Integumentary: No tenderness/swelling, No erythema, No warmth, No cyanosis Neurological: Normal speech, Normal strength at 5/5 x4 extr, Normal tone, Normal affect Laboratory Data at Discharge: WBC 9.1 K/uL (4.3-10.9) D 12/26/17 05:18 Hgb 12.3 g/dL (13.6-17.9) L 12/26/17 05:18 Hct 35.8 % (39.6-49.0) L 12/26/17 05:18 Plt Count 148 K/uL (152-406) L D 12/26/17 05:18 Sodium 143 mmol/L (136-145) 12/26/17 05:18 Potassium 3.9 mmol/L (3.5-5.1) 12/26/17 05:18 BUN 11 mg/dL (7-18) 12/26/17 05:18 Creatinine 1.10 mg/dL (0.55-1.3) 12/26/17 05:18 Glucose 106 mg/dL (74-106) 12/26/17 05:18 Total Bilirubin 0.6 mg/dL (0.2-1.0) 12/26/17 05:18 AST 20 U/L (15-37) 12/26/17 05:18 ALT 25 U/L (12-78) 12/26/17 05:18 Alkaline Phosphatase 72 U/L (45-117) 12/26/17 05:18 Home Medications: Tamsulosin [Flomax*] 0.4 mg PO BEDTIME #30 cap 12/26/17 levoFLOXacin [Levaquin*] 500 mg PO DAILY #7 tab 12/26/17 New Medications: levoFLOXacin [Levaquin*] 500 mg PO DAILY #7 tab Tamsulosin [Flomax*] 0.4 mg PO BEDTIME #30 cap Patient Discharge Instructions: 1. Patient will need to follow up with his PCP in one week to follow up this hospitalization. 2. Patient presented with fever and chills. Patient found to have Sepsis related to UTI with hypotension. He was also found to have enlarged prostate per CT scan as well. He likely has underlying BPH. There is family history of prostate cancer. During the course of his stay patient received IV antibiotic therapy and fluids. Urine culture positive for Enterbacter. Blood cultures negative. At discharge he was without any significant abdominal pain, fever, chills. Sepsis resolved. Echocardiogram revealed normal ejection fraction with mild to moderate pulmonary hypertension. At discharge he will continue with Levaquin 500 mg one pill daily for 7 days and Flomax 0.4 mg one pill every night. Recommendation is for the patient to establish care with Urology to further address. Recommendation is to repeat urine culture after treatment to monitor resolution. Recommendation is to have his PSA evaluated as well. This can be done with Urology. 3. Echocardiogram revealed normal ejection fraction with mild to moderate pulmonary hypertension. Recommendation is for the patient to follow up with pulmonology to further assess. Patient may have underlying sleep apnea as well. This can be further addressed with a sleep study. Diet: AHA Activity: Ad meghan Followup: Mary Markham MD [ACTIVE - CAN ADMIT] - (Call for appointment.) Time spent managing pt's care (in minutes): 55
[2017-12-26 10:37] VITALS: BP 116/67; TEMP 99.2
== END 2017-12-26 10:24 | disposition home or self-care (01) | DRG 872 ==
LOC: ER 11:33 → ERHOLD 13:05 → 2ND 15:57
PROVIDERS: ADMIT Family Medicine; ATTEND Internal Medicine Hematology & Oncology
DX: A41.9 Sepsis, unspecified organism (principal); N39.0 Urinary tract infection, site not specified; N40.1 Benign prostatic hyperplasia with lower urinary tract symptoms; R35.0 Frequency of micturition; I27.20 Pulmonary hypertension, unspecified; G47.33 Obstructive sleep apnea (adult) (pediatric)
CPT/HCPCS: 36415; 74177; 80048; 80053; 80076; 81003; 81015; 83605; 84145; 84484; 85025; 87040; 87077; 87086; 87088; 87186; 93005; 93306; 96361; 96365; 96366; 96375; 99285; G0008; J0696; J7030; Q2035; Q9967

== ENCOUNTER 2022-03-03 22:50 | Inpatient (IN) | payer OTHER ==
--- OUTSIDE RECORDS SUMMARY | 2022-03-03 22:54 | XMS REPORT | Continuity of Care Document ---
:1955 Author Organization [facility] t Address [address] [place] [address] Care Team Providers Name Role Phone Tramaine Nur DO Primary Care Physician KIMBER MORSE Attending Clinician Unavailable JUANY MCQUEEN Attending Clinician Unavailable KOLE SAMUEL Attending Clinician Unavailable Kimber Morse MD Attending Clinician Kole Samuel MD Attending Clinician Lab, [facility] Pob I Attending Clinician Unavailable Barbara Hobson Attending Clinician BARBARA VENEGAS Attending Clinician Unavailable Doctor Unassigned, [place] Attending Clinician Unavailable Payers Payer Name Policy Type Policy Number Effective Date Expiration Date S juan carlos MEDICARE [id number] 2020 ADVANTAGE PPO - 00:00:00 [facility] CHOICE [id number] 2019 PPO/MEDICARE PPO 00:00:00 OPEN ACCESS [id number] HMO/POS/EPO/PPO - [employer] Problems Condition Condition Condition Status Onset Resolution Last Treating Co mments Source Name Details Category Date Date Treatment Clinician Date Lower Lower Disease Active [facility] urinary urinary 8-25 College tract tract 00:00: of symptoms symptoms 00 Medici n (LUTS) (LUTS) e Peyronie's Peyronie's Disease Active [facility] disease disease 6-17 College 00:00: of 00 Medicin e Erectile Erectile Disease Active [facility] dysfunctio dysfunctio 6-17 Co llege n n 00:00: of 00 Medicin e 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 6-17 Co llege n n 00:00: of 00 Medicin e Erectile Erectile Disease Active [facility] dysfunctio dysfunctio 6-17 Co llege n n 00:00: of 00 Medicin e Elevated Elevated Disease Active 2017-03 [facility] prostate prostate 1-14 Colleg e specific specific 00:00: of antigen antigen 00 Medicin (PSA) (PSA) e Allergies, Adverse Reactions, Alerts Allergy Allergy Status Severity Reaction(s) Onset Inactive Treating Comm ents Source Name Type Date Date Clinician NO KNOWN Drug Active [facility] ALLERGIE Class ity of [facility] Social History Social Habit Start Date Stop Date Quantity Comments Source Sex Assigned At [facility] y of [facility] History [facility] ge of Alcohol Frequency Medicin e History [facility] ge of Alcohol Std Medicine Drinks History [facility] ge of Alcohol Binge Medicine Exposure to 2022-01-16 2022-01-26 Not sure [facility] e of SARS-CoV-2 00:00:00 19:23:00 Medicine (event) Alcohol intake 2021-09-08 2021-09-08 .14 /d [facility] Col lege of 00:00:00 00:00:00 Medicine Alcohol Comment 2020-07-28 2020-07-28 One drink per [facility] of 00:00:00 00:00:00 month Medicine Cigarette 2020-07-28 2020-07-28 [facility] of pack-years 00:00:00 00:00:00 Medicine Tobacco use and 2020-07-28 2020-07-28 Smokeless tobacco [facility] of exposure 00:00:00 00:00:00 non-user Medicine Smoking Status Start Date Stop Date Source Unknown if ever smoked [facility] Never smoked tobacco [facility] Itz ege of Medicine Medications Ordered Filled Start Stop Current Ordering Indication Dosage Frequency Signature Comments Components Source Medication Medication Date Date Medication? Clinician (SIG) Name Name tadalafil 2021-03 Yes [id number] TAKE ONE [facility] (EVITA) 5 1-03 (1) College MG tablet 00:00: TABLET(S) of 00 BY MOUTH Medicin ONCE A e DAY. Tamsulosin 2021-03 Yes [id number] TAKE 1 [facility] HCl 0.4 MG 1-03 CAPSULE BY Col lege CAPS 00:00: MOUTH of 00 EVERYDAY Medicin AT BEDTIME e Tamsulosin 2021-03- No [id number] TAKE 1 [facility] HCl 0.4 MG 0-25 11- CAPSULE BY Co llege CAPS 00:00: 00:00 MOUTH of 00 :00 EVERYDAY Medicin AT BEDTIME e pentoxifyll 2021- No TAKE ONE [facility] in[facility] -19 - (1) [place] ([facility]) 00:00: 00:00 TABLET(S) of 400 MG CR 00 :00 BY MOUTH Medici n tablet TWICE A e DAY. pentoxifyll 2020-03 Yes TAKE ONE [facility] 04-24 (1) [place] ([facility]) 00:00: TABLET(S) of 400 MG CR 00 BY MOUTH Medici n tablet TWICE A e DAY. tadalafil 2020-03 Yes [id number] TAKE ONE [facility] (CIALIS) 5 04-24 (1) College MG tablet 00:00: TABLET(S) of 00 BY MOUTH Medicin ONCE A e DAY. pentoxifyll 2020-03 Yes TAKE ONE [facility] 04-24 (1) [place] ([facility]) 00:00: TABLET(S) of 400 MG CR 00 BY MOUTH Medici n tablet TWICE A e DAY. tadalafil 2020-03 Yes [id number] TAKE ONE [facility] (CIALIS) 5 04-24 (1) College MG tablet 00:00: TABLET(S) of 00 BY MOUTH Medicin ONCE A e DAY. tadalafil 2020-03- No [id number] TAKE ONE [facility] (CIALIS) 5 04-24 (1) College MG tablet 00:00: 00:00 TABLET(S) of 00 :00 BY MOUTH Medicin ONCE A e DAY. Tamsulosin 2020-03 Yes [id number] .4mg Take 0.4 [facility] HCl 1-04 mg by College (FLOMAX) 00:00: mouth at of 0.4 MG CAPS 00 bedtime. Medi johnny e Tamsulosin 2020-03 Yes [id number] .4mg Take 0.4 [facility] HCl 1-04 mg by College (FLOMAX) 00:00: mouth at of 0.4 MG CAPS 00 bedtime. Medi johnny e pentoxifyll 2020-0 Yes TAKE ONE [facility] in[facility] 5-20 (1) [place] ([facility]) 00:00: TABLET(S) of 400 MG CR 00 BY MOUTH Medici n tablet TWICE A e DAY. pentoxifyll 2020-0 Yes TAKE ONE [facility] in[facility] 5-20 (1) [place] ([facility]) 00:00: TABLET(S) of 400 MG CR 00 BY MOUTH Medici n tablet TWICE A e DAY. tadalafil 2020-0 Yes [id number] TAKE ONE [facility] (CIALIS) 5 5-04 (1) College MG tablet 00:00: TABLET(S) of 00 BY MOUTH Medicin ONCE A e DAY. tadalafil 2020-0 Yes [id number] TAKE ONE [facility] (CIALIS) 5 5-04 (1) College MG tablet 00:00: TABLET(S) of 00 BY MOUTH Medicin ONCE A e DAY. Tamsulosin 2020-0 Yes [id number] .4mg Take 0.4 [facility] HCl 3-15 mg by College (FLOMAX) 00:00: mouth at of 0.4 MG CAPS 00 bedtime. Medi johnny e Tamsulosin 2020-0 Yes [id number] .4mg Take 0.4 [facility] HCl 3-15 mg by College (FLOMAX) 00:00: mouth at of 0.4 MG CAPS 00 bedtime. Medi johnny e Tamsulosin 2020-0 Yes [id number] .4mg Take 0.4 [facility] HCl 3-15 mg by College (FLOMAX) 00:00: mouth at of 0.4 MG CAPS 00 bedtime. Medi johnny e Tamsulosin 2020-0 Yes [id number] .4mg Take 0.4 [facility] HCl 3-15 mg by College (FLOMAX) 00:00: mouth at of 0.4 MG CAPS 00 bedtime. Medi johnny e tadalafil 2019-1 Yes [id number] TAKE ONE [facility] (CIALIS) 5 1-19 (1) College MG tablet 00:00: TABLET(S) of 00 BY MOUTH Medicin ONCE A e DAY. tadalafil 2019- Yes [id number] TAKE ONE [facility] (CIALIS) 5 1-19 (1) College MG tablet 00:00: TABLET(S) of 00 BY MOUTH Medicin ONCE A e DAY. XIAFLEX 0.9 2020-0 Yes [facility] MG 9-17 College injection 00:00: of 00 Medicin e XIAFLEX 0.9 2020-0 2020- No [facility] MG 9-17 04-28 College injection 00:00: 00:00 of 00 :00 Medicin e finasteride 2020-0 Yes TAKE 1 [facility] (PROSCAR) 5 8-22 TABLET BY Col lege MG tablet 00:00: MOUTH of 00 EVERY DAY Medicin e pentoxifyll 2020-0 Yes 400mg Take 1 Tab [facility] ine 7-23 by mouth [place] ([facility]) 00:00: two times of 400 MG CR 00 daily. Medicin tablet e pentoxifyll 2020-0 Yes 400mg Take 1 Tab [facility] ine 7-23 by mouth [place] ([facility]) 00:00: two times of 400 MG CR 00 daily. Medicin tablet e pentoxifyll 2020-0 Yes 400mg Take 1 Tab [facility] ine 7-23 by mouth [place] ([facility]) 00:00: two times of 400 MG CR 00 daily. Medicin tablet e tadalafil 2020-0 Yes [id number] 5mg Take 1 Tab [facility] (CIALIS) 5 7-21 by mouth Colle ge MG tablet 00:00: daily. of 00 Medicin e tadalafil 2020-0 Yes [id number] 5mg Take 1 Tab [facility] (CIALIS) 5 7-21 by mouth Colle ge MG tablet 00:00: daily. of 00 Medicin e tadalafil 2020-0 2020- No [id number] 5mg Take 1 Tab [facility] (CIALIS) 5 7-21 10-22 by mouth Itz ege MG tablet 00:00: 00:00 daily. of 00 :00 Medicin e terbinafine 2020-0 Yes [facility] (LAMISIL) 5-20 College 250 MG 00:00: of tablet 00 Medicin e terbinafine 2020-0 Yes [facility] (LAMISIL) 5-20 College 250 MG 00:00: of tablet 00 Medicin e terbinafine 2020-0 Yes [facility] (LAMISIL) 5-20 College 250 MG 00:00: of tablet 00 Medicin e terbinafine 2020-0 2020- No [facility] r (LAMISIL) 5-20 10- College 250 MG 00:00: 00:00 of tablet 00 :00 Medicin e Tamsulosin 2017-03 Yes [id number] .4mg Take 0.4 [facility] HCl 0-09 mg by College (FLOMAX) 00:00: mouth at of 0.4 MG CAPS 00 bedtime. Medi johnny e Tamsulosin 2017-03 Yes [id number] .4mg Take 0.4 [facility] HCl 0-09 mg by College (FLOMAX) 00:00: mouth at of 0.4 MG CAPS 00 bedtime. Medi johnny e finasteride 2017-03 Yes [id number] 5mg Take 1 Tab [facility] (PROSCAR) 5 0-09 by mouth Itz ege MG tablet 00:00: daily. of 00 Medicin e Tamsulosin 2017-03 Yes [id number] .4mg Take 0.4 [facility] HCl 0-09 mg by [place] (FLOMAX) 00:00: mouth at of 0.4 MG CAPS 00 bedtime. Medi johnny e Tamsulosin 2017-03 Yes [id number] .4mg Take 0.4 [facility] HCl 0-09 mg by College (FLOMAX) 00:00: mouth at of 0.4 MG CAPS 00 bedtime. Medi johnny e Tamsulosin 2017-03 Yes [id number] .4mg Take 0.4 [facility] HCl 0-09 mg by [place] (FLOMAX) 00:00: mouth at of 0.4 MG CAPS 00 bedtime. Medi johnny e finasteride 2017-03 Yes [id number] 5mg Take 1 Tab [facility] (PROSCAR) 5 0-09 by mouth Itz ege MG tablet 00:00: daily. of Medicin e finasteride 2017-03 2020- No [id number] 5mg Take 1 Tab [facility] (PROSCAR) 5 0-09 07-21 by mouth Col lege MG tablet 00:00: 00:00 daily. of 00 :00 Medicin e Vital Signs Vital Name Observation Time Observation Value Comments Source Systolic blood 2021-09-08 16:16:00 125 mm[Hg] [facility] of pressure Medicine Diastolic blood 2021-09-08 16:16:00 82 mm[Hg] [facility] pressure Medicine Heart rate 2021-09-08 16:16:00 82 /min [facility] ollege of Medicine Body temperature 2021-09-08 16:16:00 36.61 [facility] Systolic blood 2021-03-10 18:24:00 135 mm[Hg] [facility] Medicine Diastolic blood 2021-03-10 18:24:00 82 mm[Hg] [facility] Medicine Heart rate 2021-03-10 18:24:00 74 /min [facility] ollege of Medicine Respiratory rate 2021-03-10 18:24:00 16 /min [facility] Systolic blood 2021-01-28 15:59:00 125 mm[Hg] [facility] Diastolic blood 2021-01-28 15:59:00 83 mm[Hg] [facility] Medicine Heart rate 2021-01-28 15:59:00 70 /min [facility] ollege of Medicine Body temperature 2021-01-28 15:59:00 36.67 [facility] Respiratory rate 2021-01-28 15:59:00 16 /min [facility] Body height 2021-01-28 15:59:00 175.3 cm [facility] ollege of [facility] Body weight 2021-01-28 15:59:00 80.74 kg [facility] ollege of [facility] BMI 2021-01-28 15:59:00 26.29 kg/m2 [facility] ol[facility] of Medicine Systolic blood 2020-11-18 14:20:00 131 mm[Hg] [facility] Medicine Diastolic blood 2020-11-18 14:20:00 80 mm[Hg] [facility] Medicine Heart rate 2020-11-18 14:20:00 72 /min [facility] ollege of Medicine Body temperature 2020-11-18 14:20:00 36.5 [facility] Body height 2020-11-18 14:20:00 175.3 cm [facility] ollege of Medicine Body weight 2020-11-18 14:20:00 82.555 kg [facility] ol[facility] of Medicine BMI 2020-11-18 14:20:00 26.88 kg/m2 [facility] of Medicine Systolic blood 2020-07-22 16:14:00 131 mm[Hg] [facility] pressure Medicine Diastolic blood 2020-07-22 16:14:00 86 mm[Hg] [facility] pressure Medicine Heart rate 2020-07-22 16:14:00 83 /min [facility] ol[facility] of Medicine Body temperature 2020-07-22 16:14:00 35.94 [facility] Body height 2020-07-22 16:14:00 175.3 cm [facility] ollege of [facility] Body weight 2020-07-22 16:14:00 83.008 kg [facility] ollege of Medicine BMI 2020-07-22 16:14:00 27.02 kg/m2 [facility] ollege of [facility] Systolic blood 2020-01-15 15:39:00 142 mm[Hg] [facility] of pressure Medicine Diastolic blood 2020-01-15 15:39:00 91 mm[Hg] [facility] Medicine Heart rate 2020-01-15 15:39:00 68 /min [facility] ollege of [facility] Body temperature 2020-01-15 15:39:00 36.83 [facility] Respiratory rate 2020-01-15 15:39:00 16 /min [facility] Body height 2020-01-15 15:39:00 175.3 cm [facility] ollege of [facility] Body weight 2020-01-15 15:39:00 83.008 kg [facility] ollege of [facility] BMI 2020-01-15 15:39:00 27.02 kg/m2 [facility] ollege of [facility] Systolic blood 2019-10-15 15:08:00 134 mm[Hg] [facility] pressure Medicine Diastolic blood 2019-10-15 15:08:00 86 mm[Hg] [facility] of pressure Medicine Heart rate 2019-10-15 15:08:00 84 /min [facility] ollege of [facility] Body temperature 2019-10-15 15:08:00 36.61 [facility] Body height 2019-10-15 15:08:00 175.3 cm [facility] ollege of [facility] Body weight 2019-10-15 15:08:00 83.008 kg [facility] 2019-10-15 15:08:00 27[facility]02 [facility] blood 2019-09-11 15:02:00 137 mm[Hg] [facility] pressure Medicine Diastolic blood 2019-09-11 15:02:00 91 mm[Hg] [facility] Medicine Heart rate 2019-09-11 15:02:00 74 /min [facility] Body temperature 2019-09-11 15:02:00 36.89 [facility] Systolic blood 2018-11-07 15:00:00 129 mm[Hg] [facility] pressure Medicine Diastolic blood 2018-11-07 15:00:00 82 mm[Hg] [facility] Medicine Heart rate 2018-11-07 15:00:00 73 /min [facility] Body temperature 2018-11-07 15:00:00 36.78 [facility] Body height 2018-11-07 15:00:00 175.3 cm [facility] Body weight 2018-11-07 15:00:00 78.472 kg [facility] BMI 2018-11-07 15:00:00 25.55 kg/m2 [facility] Procedures Procedure Date / Time Performed Performing Clinician Sour e POCT URINALYSIS 2021-09-08 00:00:00 Kimber Morse [facility] Itz ege of DIPSTICK Medicine POCT URINALYSIS 2021-09-08 00:00:00 [facility] Colle ge of DIPSTICK Medicine POCT URINALYSIS 2020-11-18 00:00:00 Kimber Morse [facility] Itz ege of DIPSTICK Medicine POCT URINALYSIS 2020-07-22 00:00:00 Kimber Morse [facility] It[facility] e[facility] of DIPSTICK Medicine POCT URINALYSIS 2020-01-15 00:00:00 Kimber Morse [facility] of DIPSTICK Medicine POCT URINALYSIS 2018-11-07 00:00:00 Kimber Morse [facility] Itz ege of DIPSTICK Medicine Plan of Care Planned Activity Planned Date Details Comments Source Future Scheduled 2022-01-27 Screening for [facility] Col lege Test 10:48:32 malignant neoplasm of Medici ne of colon (procedure) [code = 076840241] Future Scheduled 2022-01-27 COVID-19 Vaccine [facility] College Test 10:48:32 (#1) [code = of Medicine COVID-19 Vaccine (#1)] Future Scheduled 2022-01-27 TETANUS SHOT [facility] Itz ege Test 10:48:32 (ADULT) [code = of Medicine TETANUS SHOT (ADULT)] Future Scheduled 2022-01-27 BMI FOLLOW UP PLAN [facility] Test 10:48:32 [code = BMI FOLLOW of Medici ne UP PLAN] Future Scheduled 2022-01-27 Hepatitis C [facility] Itz ege Test 10:48:32 screening of Medicine (procedure) [code = 774734792] Future Scheduled 2022-01-27 ZOSTER VACCINE (1 [facility] College Test 10:48:32 of 2) [code = of Medicine ZOSTER VACCINE (1 of 2)] Future Scheduled 2022-01-27 Pneumococcal 65+ (1 [facility] Test 10:48:32 - PCV) [code = of Medicine Pneumococcal 65+ (1 - PCV)] Future Scheduled 2022-01-27 MEDICARE AWV [facility] Itz ege Test 10:48:32 (Initial) [code = of Medicin e MEDICARE AWV (Initial)] Future Scheduled 2022-01-27 FLU VACCINE > 6 [facility] C ollege Test 10:48:32 MONTHS [code = FLU of Medici ne VACCINE > 6 MONTHS] Future Scheduled 2022-01-27 FALL SCREEN [code = [facility] Test 10:48:32 FALL SCREEN] of Medicine Future Scheduled 2021-09-08 Screening for [facility] Col [facility]ge Test 12:32:48 malignant neoplasm of Medici ne of colon (procedure) [code = 056642516] Future Scheduled 2021-09-08 COVID-19 Vaccine [facility] Test 12:32:48 (#1) [code = of Medicine COVID-19 Vaccine (#1)] Future Scheduled 2021-09-08 TETANUS SHOT [facility] Itz e[facility] Test 12:32:48 (ADULT) [code = of Medicine TETANUS SHOT (ADULT)] Future Scheduled 2021-09-08 BMI FOLLOW UP PLAN [facility] r College Test 12:32:48 [code = BMI FOLLOW of Medici ne UP PLAN] Future Scheduled 2021-09-08 Hepatitis C [facility] Itz ege Test 12:32:48 screening of Medicine (procedure) [code = 297550920] Future Scheduled 2021-09-08 ZOSTER VACCINE (1 [facility] Test 12:32:48 of 2) [code = of Medicine ZOSTER VACCINE (1 of 2)] Future Scheduled 2021-09-08 Pneumococcal 65+ (1 [facility] Test 12:32:48 - PCV) [code = of Medicine Pneumococcal 65+ (1 - PCV)] Future Scheduled 2021-09-08 MEDICARE AWV [facility] Itz ege Test 12:32:48 (Initial) [code = of Medicin e MEDICARE AWV (Initial)] Future Scheduled 2021-09-08 FLU VACCINE > 6 [facility] C [facility]lege Test 12:32:48 MONTHS [code = FLU of Medici ne VACCINE > 6 MONTHS] Future Scheduled 2021-09-08 FALL SCREEN [code = [facility] Test 12:32:48 FALL SCREEN] of Medicine Future Scheduled 2021-03-23 PHI PANEL (URO Expected: [facility] Co [facility]lege Test 00:00:00 DEPT) [code = 03/23/2021 of Medicine 71313] (Approximate), Expires: 04/08/2021 Future Scheduled 2021-03-10 Screening for [facility] Col [facility]ge Test 13:02:55 malignant neoplasm of Medici ne of colon (procedure) [code = 816236120] Future Scheduled 2021-03-10 COVID-19 Vaccine [facility] Test 13:02:55 (1) [code = of Medicine COVID-19 Vaccine (1)] Future Scheduled 2021-03-10 TETANUS SHOT [facility] Itz ege Test 13:02:55 (ADULT) [code = of Medicine TETANUS SHOT (ADULT)] Future Scheduled 2021-03-10 BMI FOLLOW UP PLAN [facility] r College Test 13:02:55 [code = BMI FOLLOW of Medici ne UP PLAN] Future Scheduled 2021-03-10 Hepatitis C [facility] Itz ege Test 13:02:55 screening of Medicine (procedure) [code = 218144470] Future Scheduled 2021-03-10 ZOSTER VACCINE (1 [facility] Test 13:02:55 of 2) [code = of Medicine ZOSTER VACCINE (1 of 2)] Future Scheduled 2021-03-10 FALL SCREEN [code = [facility] [facility] Test 13:02:55 FALL SCREEN] of Medicine Future Scheduled 2021-03-10 Pneumococcal 65+ (1 [facility] [facility] Test 13:02:55 of 1 - PPSV23) of Medicine [code = Pneumococcal 65+ (1 of 1 - PPSV23)] Future Scheduled 2021-03-10 MEDICARE IPPE [facility] Col [facility]ge Test 13:02:55 (WELCOME TO of Medicine MEDICARE) [code = MEDICARE IPPE (WELCOME TO MEDICARE)] Future Scheduled 2021-03-10 FLU VACCINE > 6 [facility] C [facility]lege Test 13:02:55 MONTHS [code = FLU of Medici ne VACCINE > 6 MONTHS] Future Scheduled 2021-01-28 Screening for [facility] Col [facility]ge Test 11:01:38 malignant neoplasm of Medici ne of colon (procedure) [code = 043049217] Future Scheduled 2021-01-28 COVID-19 Vaccine [facility] Test 11:01:38 (1) [code = of Medicine COVID-19 Vaccine (1)] Future Scheduled 2021-01-28 TETANUS SHOT [facility] Itz ege Test 11:01:38 (ADULT) [code = of Medicine TETANUS SHOT (ADULT)] Future Scheduled 2021-01-28 BMI FOLLOW UP PLAN [facility] r College Test 11:01:38 [code = BMI FOLLOW of Medici ne UP PLAN] Future Scheduled 2021-01-28 Hepatitis C [facility] Itz [facility]ge Test 11:01:38 screening of Medicine (procedure) [code = 708920465] Future Scheduled 2021-01-28 ZOSTER VACCINE (1 [facility] Test 11:01:38 of 2) [code = of Medicine ZOSTER VACCINE (1 of 2)] Future Scheduled 2021-01-28 FALL SCREEN [code = [facility] [facility] Test 11:01:38 FALL SCREEN] of Medicine Future Scheduled 2021-01-28 PNEUMOVAX >=65 [facility] Co [facility]lege Test 11:01:38 (PPSV23) [code = of Medicine PNEUMOVAX >=65 (PPSV23)] Future Scheduled 2021-01-28 FLU VACCINE > 6 [facility] C ollege Test 11:01:38 MONTHS [code = FLU of Medici ne VACCINE > 6 MONTHS] Future Scheduled 2020-11-18 Screening for [facility] Col lege Test 09:50:52 malignant neoplasm of Medici ne of colon (procedure) [code = 973072928] Future Scheduled 2020-11-18 COVID-19 Vaccine [facility] Test 09:50:52 (1) [code = of Medicine COVID-19 Vaccine (1)] Future Scheduled 2020-11-18 TETANUS SHOT [facility] Itz ege Test 09:50:52 (ADULT) [code = of Medicine TETANUS SHOT (ADULT)] Future Scheduled 2020-11-18 BMI FOLLOW UP PLAN [facility] r [place] Test 09:50:52 [code = BMI FOLLOW of Medici ne UP PLAN] Future Scheduled 2020-11-18 Hepatitis C [facility] Itz ege Test 09:50:52 screening of Medicine (procedure) [code = 866308350] Future Scheduled 2020-11-18 ZOSTER VACCINE (1 [facility] Test 09:50:52 of 2) [code = of Medicine ZOSTER VACCINE (1 of 2)] Future Scheduled 2020-11-18 FALL SCREEN [code = [facility] Test 09:50:52 FALL SCREEN] of Medicine Future Scheduled 2020-11-18 PNEUMOVAX >=65 [facility] Co [facility]lege Test 09:50:52 (PPSV23) [code = of Medicine PNEUMOVAX >=65 (PPSV23)] Future Scheduled 2020-11-18 FLU VACCINE > 6 [facility] C ollege Test 09:50:52 MONTHS [code = FLU of Medici ne VACCINE > 6 MONTHS] Diagnostic Test 2020-10-21 PHI PANEL (URO Expected: [facility] Col [facility] Pending 00:00:00 DEPT) [code = 10/21/2020 of Medicine 60094] (Approximate), Expires: 07/22/2021 Diagnostic Test 2020-01-26 PHI PANEL (URO Expected: [facility] Col lege Pending 00:00:00 DEPT) [code = 01/26/2020 of Medicine 60131] (Approximate), Expires: 09/10/2020 Diagnostic Test 2019-10-29 TESTOSTERONE-TOTAL( Expected: [employer] [facility] [employer] Pending 00:00:00 URO DEPT) [code = 10/29/2019 of Medicin e 2986-8] (Approximate), Expires: 11/14/2019 Diagnostic Test 2019-10-29 SHBG(URO DEPT) Expected: [facility] Col lege Pending 00:00:00 [code = 64854] 10/29/2019 of Medicine (Approximate), Expires: 11/14/2019 Diagnostic Test 2018-11-21 PHI PANEL (URO Expected: [facility] Col [facility]ge Pending 00:00:00 DEPT) [code = 11/21/2018 of Medicine 05950] (Approximate), Expires: 12/07/2018 Future Scheduled COLON CANCER [facility] Itz ege Test SCREENING: of Medicine COLONOSCOPY [code = COLON CANCER SCREENING: COLONOSCOPY] Future Scheduled TETANUS SHOT [facility] Itz ege Test (ADULT) [code = of Medicine TETANUS SHOT (ADULT)] Future Scheduled BMI FOLLOW UP PLAN [employer] Test [code = BMI FOLLOW of Medici ne UP PLAN] Future Scheduled HEPATITIS C [facility] Itz ege Test SCREENING [code = of Medicin e HEPATITIS C SCREENING] Future Scheduled ZOSTER VACCINE (1 [facility] College Test of 2) [code = of Medicine ZOSTER VACCINE (1 of 2)] Future Scheduled FALL SCREEN [code = [facility] [facility] Test FALL SCREEN] of Medicine Future Scheduled PNEUMOVAX >=65 [facility] Co llege Test (PPSV23) [code = of Medicine PNEUMOVAX >=65 (PPSV23)] Future Scheduled FLU VACCINE > 6 [facility] C ollege Test MONTHS [code = FLU of Medici ne VACCINE > 6 MONTHS] Future Scheduled MEDICARE IPPE [facility] Col lege Test (WELCOME TO of Medicine MEDICARE) [code = MEDICARE IPPE (WELCOME TO MEDICARE)] Future Scheduled Screening for [facility] Col lege Test malignant neoplasm of Medici ne of colon (procedure) [code = 922533968] Future Scheduled TETANUS SHOT [facility] Itz ege Test (ADULT) [code = of Medicine TETANUS SHOT (ADULT)] Future Scheduled COVID-19 Vaccine [facility] College Test (1) [code = of Medicine COVID-19 Vaccine (1)] Future Scheduled BMI FOLLOW UP PLAN [employer] Test [code = BMI FOLLOW of Medici ne UP PLAN] Future Scheduled Hepatitis C [facility] Itz ege Test screening of Medicine (procedure) [code = 077025644] Future Scheduled ZOSTER VACCINE (1 [employer] Test of 2) [code = of Medicine ZOSTER VACCINE (1 of 2)] Future Scheduled FALL SCREEN [code = [employer] [facility] FALL SCREEN] of Medicine Future Scheduled PNEUMOVAX >=65 [facility] Co llege Test (PPSV23) [code = of Medicine PNEUMOVAX >=65 (PPSV23)] Future Scheduled FLU VACCINE > 6 [facility] C ollege Test MONTHS [code = FLU of Medici ne VACCINE > 6 MONTHS] Future Scheduled Screening for [facility] Col lege Test malignant neoplasm of Medici ne of colon (procedure) [code = 114850336] Future Scheduled TETANUS SHOT [facility] Test (ADULT) [code = of Medicine TETANUS SHOT (ADULT)] Future Scheduled COVID-19 Vaccine [facility] Test (1) [code = of Medicine COVID-19 Vaccine (1)] Future Scheduled BMI FOLLOW UP PLAN [facility] r College Test [code = BMI FOLLOW of Medici ne UP PLAN] Future Scheduled Hepatitis C [facility] Itz ege Test screening of Medicine (procedure) [code = 607173364] Future Scheduled ZOSTER VACCINE (1 [facility] Test of 2) [code = of Medicine ZOSTER VACCINE (1 of 2)] Future Scheduled FALL SCREEN [code = [facility] [place] Test FALL SCREEN] of Medicine Future Scheduled PNEUMOVAX >=65 [facility] Co llege Test (PPSV23) [code = of Medicine PNEUMOVAX >=65 (PPSV23)] Future Scheduled FLU VACCINE > 6 [facility] C ollege Test MONTHS [code = FLU of Medici ne VACCINE > 6 MONTHS] Future Scheduled COLON CANCER [facility] Itz ege Test SCREENING: of Medicine COLONOSCOPY [code = COLON CANCER SCREENING: COLONOSCOPY] Future Scheduled TETANUS SHOT [facility] Test (ADULT) [code = of Medicine TETANUS SHOT (ADULT)] Future Scheduled BMI FOLLOW UP PLAN [facility] r College Test [code = BMI FOLLOW of Medici ne UP PLAN] Future Scheduled HEPATITIS C [facility] Itz ege Test SCREENING [code = of Medicin e HEPATITIS C SCREENING] Future Scheduled HIV SCREENING [code [employer] Test = HIV SCREENING] of Medicine Future Scheduled FLU VACCINE > 6 [facility] C ollege Test MONTHS [code = FLU of Medici ne VACCINE > 6 MONTHS] Future Scheduled COLON CANCER [facility] Itz ege Test SCREENING: of Medicine COLONOSCOPY [code = COLON CANCER SCREENING: COLONOSCOPY] Future Scheduled TETANUS SHOT [facility] Itz ege Test (ADULT) [code = of Medicine TETANUS SHOT (ADULT)] Future Scheduled BMI FOLLOW UP PLAN [facility] r College Test [code = BMI FOLLOW of Medici ne UP PLAN] Future Scheduled HEPATITIS C [facility] Itz ege Test SCREENING [code = of Medicin e HEPATITIS C SCREENING] Future Scheduled MEDICARE IPPE [facility]ge Test (WELCOME TO of Medicine MEDICARE) [code = MEDICARE IPPE (WELCOME TO MEDICARE)] Future Scheduled FALL SCREEN [code = [employer] [facility] FALL SCREEN] of Medicine Future Scheduled PNEUMOVAX >=65 [facility] [employer] Test (PPSV23) [code = of Medicine PNEUMOVAX >=65 (PPSV23)] Future Scheduled PREVNAR >= 65 [facility] Test (PCV13) [code = of Medicine PREVNAR >= 65 (PCV13)] Future Scheduled FLU VACCINE > 6 [facility] C ollege Test MONTHS [code = FLU of Medici ne VACCINE > 6 MONTHS] Future Scheduled COLON CANCER [facility] Test SCREENING: of Medicine COLONOSCOPY [code = COLON CANCER SCREENING: COLONOSCOPY] Future Scheduled TETANUS SHOT [facility] Itz ege Test (ADULT) [code = of Medicine TETANUS SHOT (ADULT)] Future Scheduled BMI FOLLOW UP PLAN [employer] Test [code = BMI FOLLOW of Medici ne UP PLAN] Future Scheduled HEPATITIS C [facility] Test SCREENING [code = of Medicin e HEPATITIS C SCREENING] Future Scheduled MEDICARE IPPE [facility] Col [facility]ge Test (WELCOME TO of Medicine MEDICARE) [code = MEDICARE IPPE (WELCOME TO MEDICARE)] Future Scheduled FALL SCREEN [code = [employer] [facility] FALL SCREEN] of Medicine Future Scheduled PNEUMOVAX >=65 [facility] Co llege Test (PPSV23) [code = of Medicine PNEUMOVAX >=65 (PPSV23)] Future Scheduled FLU VACCINE > 6 [facility] C ollege Test MONTHS [code = FLU of Medici ne VACCINE > 6 MONTHS] Future Scheduled COLON CANCER [facility] Itz ege Test SCREENING: of Medicine COLONOSCOPY [code = COLON CANCER SCREENING: COLONOSCOPY] Future Scheduled TETANUS SHOT [facility] Itz [facility]ge Test (ADULT) [code = of Medicine TETANUS SHOT (ADULT)] Future Scheduled BMI FOLLOW UP PLAN [employer] Test [code = BMI FOLLOW of Medici ne UP PLAN] Future Scheduled HEPATITIS C [facility]z [facility] Test SCREENING [code = of Medicin e HEPATITIS C SCREENING] Future Scheduled MEDICARE IPPE [facility] Col lege Test (WELCOME TO of Medicine MEDICARE) [code = MEDICARE IPPE (WELCOME TO MEDICARE)] Future Scheduled FALL SCREEN [code = [facility] or College Test FALL SCREEN] of Medicine Future Scheduled PNEUMOVAX >=65 [facility] Co llege Test (PPSV23) [code = of Medicine PNEUMOVAX >=65 (PPSV23)] Future Scheduled FLU VACCINE > 6 [facility] C ollege Test MONTHS [code = FLU of Medici ne VACCINE > 6 MONTHS] Future Scheduled US PENILE DUPLEX 1 Occurrences [facility] Test [code = 85598] starting of Medicine 10/15/2019 until 05/17/2020 Future Scheduled PHI PANEL (URO 6mon for 4 [facility] Co llege Test DEPT) [code = Occurrences of Medicine 20838] starting 11/07/2018 until 05/10/2019 Encounters Start End Encounter Admission Attending Care Care Encounter Source Date/Time Date/Time Type Type Clinicians Facility Department ID 2022-03-02 2022-03-02 Outpatient MARGARITA MORSE [id number] 7 [facility] 10:49:00 12:12:54 [facility]IM[facility] Itz [facility]ge of Medicin e 2022-01-27 2022-01-27 Office MARGARITA MCQUEEN 1.2.840.114 [id number] 40 [facility] 10:48:42 11:42:55 Visit BASIL AMBULATOR 350.1.13.21 College Y 0.2.7.2.686 of [id number] Medi johnny 300 e 2021-09-08 2021-09-08 Office MARGARITA MORSE 1.2.840.114 [id number] [facility] 11:04:42 12:56:29 Visit KIMBER AMBULATOR 350.1.13.21 College Y 0.2.7.2.686 of [id number] Medi johnny 300 e 2021-03-10 2021-03-10 Office MARGARITA MORSE 1.2.840.114 [id number] 63 [facility] 10:55:21 12:36:47 Visit KIMBER AMBULATOR 350.1.13.21 College Y 0.2.7.2.686 of [id number] Medi johnny 300 e 2021-01-28 2021-01-28 Office MARGARITA SAMUEL 1.2.840.114 [id number] [facility] 10:41:14 11:48:24 Visit KOLE AMBULATOR 350.1.13.21 College Y 0.2.7.2.686 of [id number] Medi johnny 300 e 2020-11-18 2020-11-18 Office MARGARITA Morse 1.2.840.114 [id number] 36 [facility] 09:04:23 09:56:04 Visit Kimber AMBULATOR 350.1.13.21 College Y 0.2.7.2.686 of [id number] Medi johnny 300 e 2020-07-28 2020-07-28 Office MARGARITA Samuel 1.2.840.114 [id number] 71 [facility] 13:04:16 13:14:16 Visit Kole AMBULATOR 350.1.13.21 College Y 0.2.7.2.686 of [id number] Medi johnny 300 e 2020-07-22 2020-07-22 Office MARGARITA Morse 1.2.840.114 [id number] 44 [facility] 11:01:30 12:45:14 Visit Kimber AMBULATOR 350.1.13.21 College Y 0.2.7.2.686 of [id number] Medi johnny 300 e 2020-01-15 2020-01-15 Office MARGARITA Morse 1.2.840.114 [id number] 51 [facility] 10:05:37 12:07:22 Visit Kimber AMBULATOR 350.1.13.21 College Y 0.2.7.2.686 of [id number] Medi johnny 300 e 2019-12-24 2019-12-24 Laboratory Lab, [facility] [place] 1.2.840.114 [id number] 19:04:37 19:24:37 Only Fam Pob I Health 350.1.13.10 [place] 4.2.7.2.686 Professio [id number] nal 044 Office [address] One 2019-12-24 2019-12-24 Laboratory Lab, [facility] Fam Pob I [facility] 1.2. 840.114 [id number] [facility] 19:04:37 19:24:37 Only Green, [facility] 350.1.13.10 ity of [place] 4.2.7.2.686 Vipul as Professio [id number] Va dical nal 044 [address] Office [address] One 2019-12-24 2019-12-24 Outpatient R [facility] [id number] Univers 19:20:00 19:20:[address] [facility] 2019-12-24 2019-12-24 Letter Doctor CHANA 1.2.840.114 [id number] 00:00:00 00:00:00 (Out) Unassigned, TIM 350.1.13.10 [facility] 4.2.7.2.686 [id number] 044 2019-12-24 2019-12-24 Letter Doctor CHANA 1.2.840.114 [id number] Univers 00:00:00 00:00:00 (Out) Unassigned, TIM 350.1.13.10 ity of [facility] 4.2.7.2.686 Vipul as [id number] Medi meche [address] [place] [address] 2019-10-17 2019-10-17 Office MARGARITA Samuel 1.2.840.114 [id number] 99 [facility] 09:41:23 09:51:23 Visit Kole AMBULATOR 350.1.13.21 College Y 0.2.7.2.686 of [id number] Medi johnny 300 e 2019-10-15 2019-10-15 Office MARGARITA Samuel 1.2.840.114 [id number] 56 [facility] 10:03:45 10:13:45 Visit Kole AMBULATOR 350.1.13.21 College Y 0.2.7.2.686 of [id number] Medi johnny 300 e 2019-09-11 2019-09-11 Office MARGARITA Morse 1.2.840.114 [id number] 90 [facility] 09:36:36 09:51:36 Visit Kimber AMBULATOR 350.1.13.21 College Y 0.2.7.2.686 of [id number] Medi johnny 300 e 2018-11-07 2018-11-07 Office MARGARITA Morse 1.2.840.114 [id number] 87 [facility] 09:44:05 10:57:39 Visit Kimber AMBULATOR 350.1.13.21 College Y 0.2.7.2.686 of [id number] Medi johnny 300 e Results Test Description Test Time Test Comments Results Result Comments Source POCT URINALYSIS DIPSTICK 2021-09-08 00:00:00 Test Item Value Reference Range Interpretation Comme nts COLOR UA (test code = 5778-6) Yellow YELLOW/STRAW CLARITY UA (test code = 68589-9) Clear CLEAR GLUCOSE UA (test code = 5792-7) Negative NEGATIVE BILIRUBIN UA (test code = 5770-3) Negative NEGATIVE KETONES UA (test code = 77564-3) Negative NEGATIVE SPECIFIC GRAVITY UA (test code = 5811-5) 1.005-1.035 A BLOOD UA (test code = 5794-3) Negative NEGATIVE PH UA (test code = 5803-2) 5-9 PROTEIN UA (test code = 5804-0) Trace NEGATIVE UROBILINOGEN UA (test code = 5818-0) 0.02 E.U/DL NORMAL MG/DL LEUKOCYTE ESTERASE UA (test code = 5799-2) Negative NEGATIVE NITRITE UA (test code = 5802-4) Negative NEGATIVE REDUCING SUBSTANCES URINE (test code = 63409-6) Lab Interpretation (test code = 29807-8) Abnormal [facility] URINALYSIS [id number] 00:00:00 Test Item Value Reference Range Interpretation Comments COLOR UA (test code = 5778-6) Yellow YELLOW/STRAW CLARITY UA (test code = 61196-7) Clear CLEAR GLUCOSE UA (test code = 5792-7) Negative NEGATIVE BILIRUBIN UA (test code = 5770-3) Negative NEGATIVE KETONES UA (test code = 54088-7) Negative NEGATIVE SPECIFIC GRAVITY UA (test code = 1.005-1.035 5811-5) BLOOD UA (test code = 5794-3) Negative NEGATIVE PH UA (test code = 5803-2) 5.0-9.0 PROTEIN UA (test code = 5804-0) Negative NEGATIVE UROBILINOGEN UA (test code = 0.02 E.U/DL NORMAL MG/DL 5818-0) LEUKOCYTE ESTERASE UA (test code Negative NEGATIVE = 5799-2) NITRITE UA (test code = 5802-4) Negative NEGATIVE REDUCING SUBSTANCES URINE (test code = 27719-6) [facility] [id number] [facility]:00:00 Test Item Value Reference Range Interpretation Comments COLOR UA (test code = 5778-6) Yellow YELLOW/STRAW CLARITY UA (test code = 01050-2) Clear CLEAR GLUCOSE UA (test code = 5792-7) Negative NEGATIVE BILIRUBIN UA (test code = 5770-3) Negative NEGATIVE KETONES UA (test code = 28998-7) Positive NEGATIVE SPECIFIC GRAVITY UA (test code = 1.005-1.035 5811-5) BLOOD UA (test code = 5794-3) Negative NEGATIVE PH UA (test code = 5803-2) 5.0-9.0 PROTEIN UA (test code = 5804-0) Negative NEGATIVE UROBILINOGEN UA (test code = 0.02 E.U/DL NORMAL MG/DL 5818-0) LEUKOCYTE ESTERASE UA (test code Negative NEGATIVE = 5799-2) NITRITE UA (test code = 5802-4) Negative NEGATIVE REDUCING SUBSTANCES URINE (test code = 44998-6) [facility] URINALYSIS [id number] 00:00:00 Test Item Value Reference Range Interpretation Comments COLOR UA (test code = 5778-6) Yellow YELLOW/STRAW CLARITY UA (test code = 11515-0) Clear CLEAR GLUCOSE UA (test code = 5792-7) Negative NEGATIVE BILIRUBIN UA (test code = 5770-3) Negative NEGATIVE KETONES UA (test code = 00262-4) Negative NEGATIVE SPECIFIC GRAVITY UA (test code = 1.005-1.035 5811-5) BLOOD UA (test code = 5794-3) Negative NEGATIVE PH UA (test code = 5803-2) 5-9 PROTEIN UA (test code = 5804-0) Trace NEGATIVE UROBILINOGEN UA (test code = 0.02 E.U/DL NORMAL MG/DL 5818-0) LEUKOCYTE ESTERASE UA (test code Negative NEGATIVE = 5799-2) NITRITE UA (test code = 5802-4) Negative NEGATIVE REDUCING SUBSTANCES URINE (test code = 35434-6) [facility] [id number] 00:00:00 Test Item Value Reference Range Interpretation Comments COLOR UA (test code = 5778-6) Shasha YELLOW/STRAW CLARITY UA (test code = 10697-1) Clear CLEAR GLUCOSE UA (test code = 5792-7) Negative NEGATIVE BILIRUBIN UA (test code = 5770-3) Negative NEGATIVE KETONES UA (test code = 36163-0) Negative NEGATIVE SPECIFIC GRAVITY UA (test code = 1.005-1.035 5811-5) BLOOD UA (test code = 5794-3) Negative NEGATIVE PH UA (test code = 5803-2) 5-9 PROTEIN UA (test code = 5804-0) Negative NEGATIVE UROBILINOGEN UA (test code = 0.02 E.U/DL NORMAL MG/DL 5818-0) LEUKOCYTE ESTERASE UA (test code Negative NEGATIVE = 5799-2) NITRITE UA (test code = 5802-4) Negative NEGATIVE REDUCING SUBSTANCES URINE (test NEGATIVE code = 17457-5) [facility]
[2022-03-03 23:17] LABS: Urine Blood Trace-lysed (Negative); Urine Glucose Negative (Negative); Urine Protein Negative (Negative); Urine Specific Gravity >=1.030 (1.005-1.030); Urine pH 5.5 (5.0-7.0)
[2022-03-03] MEDS ORDERED: NA CHLORIDE 0.9% 50 ML IV ONE (23:34)
[2022-03-03] MEDS ORDERED: CEFTRIAXONE 2000 MG/VIAL ONE (23:34)
[2022-03-03] MEDS ORDERED: NA CHLORIDE 0.9% 1,000 ML ONE (23:35)
[2022-03-03] MEDS ORDERED: Levofloxacin 750mg IV 750 MG/150 ML BAG IV ONE (23:35)
[2022-03-04 00:11] LABS: Absolute Lymphocytes (CBC) 0.8 K/uL (0.7-4.9); Lymphocytes % 5.7 % (15.3-44.8); MPV 7.7 fL (7.6-11.3); RBC Red Blood Cell Count 5.16 M/uL (4.33-5.43)
[2022-03-04 00:28] LABS: Albumin 4.4 g/dL (3.4-5.0); Bilirubin Total 0.6 mg/dL (0.2-1.0); Potassium 3.8 mmol/L (3.5-5.1); Protein, Total 8.2 g/dL (6.4-8.2)
--- NOTE | 2022-03-04 01:01 | ER ---
Nurse's Notes [facility] Name: Addison Kaiser Age: 66 yrs Sex: Male : 1955 Arrival Date: 03/03/2022 Time: 22:53 Bed 5 Private MD: Diagnosis: Fever, unspecified;UTI/ Urinary tract infection, site not specified;Acute prostatitis;Weakness;Elevated white blood cell count;Sepsis, unspecified organism Presentation: 03/03 22:57 Chief complaint: Urinary urgency and frequency x 2 days, burning with urination since hb this morning, body aches and low back pain tonight. Coronavirus screen: At this time, the client does not indicate any symptoms associated with coronavirus-19. Ebola Screen: No symptoms or risks identified at this time. Risk Assessment: Do you want to hurt yourself or someone else? Patient reports no desire to harm self or others. Onset of symptoms was March 01, 2022. 22:57 Method Of Arrival: Ambulatory hb 22:57 Acuity: LILIANA 3 hb Historical: - Allergies: 22:59 No Known Allergies; hb Screenin:15 Abuse screen: Denies threats or abuse. Nutritional screening: No deficits noted. jb4 Tuberculosis screening: No symptoms or risk factors identified. Fall Risk None identified. Assessment: 23:15 General: Appears in no apparent distress. comfortable, Behavior is calm, cooperative, jb4 appropriate for age. Pain: Complains of pain in low back area Pain does not radiate. Pain currently is 5 out of 10 on a pain scale. Quality of pain is described as aching. Neuro: Level of Consciousness is awake, alert, obeys commands, Oriented to person, place, time, situation. Cardiovascular: Patient's skin is warm and dry. Respiratory: Airway is patent Respiratory effort is even, unlabored, Respiratory pattern is regular, symmetrical. GI: No signs and/or symptoms were reported involving the gastrointestinal system. : No signs and/or symptoms were reported regarding the genitourinary system. EENT: No signs and/or symptoms were reported regarding the EENT system. Derm: Skin is intact, Skin is pink, warm \T\ dry. Musculoskeletal: Circulation, motion, and sensation intact. Range of motion: intact in all extremities. 03/04 00:15 Reassessment: Patient appears in no apparent distress at this time. Patient and/or jb4 family updated on plan of care and expected duration. Pain level reassessed. Patient is alert, oriented x 3, equal unlabored respirations, skin warm/dry/pink. 01:30 Reassessment: Patient appears in no apparent distress at this time. Patient and/or jb4 family updated on plan of care and expected duration. Pain level reassessed. Patient is alert, oriented x 3, equal unlabored respirations, skin warm/dry/pink. 02:30 Reassessment: Patient appears in no apparent distress at this time. Patient and/or jb4 family updated on plan of care and expected duration. Pain level reassessed. Patient is alert, oriented x 3, equal unlabored respirations, skin warm/dry/pink. 04:00 Reassessment: Patient appears in no apparent distress at this time. Patient and/or jb4 family updated on plan of care and expected duration. Pain level reassessed. Patient is alert, oriented x 3, equal unlabored respirations, skin warm/dry/pink. Vital Signs: 03/03 22:57 BP 146 / 93; Pulse 113; Resp 16; Temp 99(TE); Pulse Ox 97% on R/A; Weight 80.29 kg; hb Height 5 ft. 9 in. (175.26 cm); Pain 5/10; 12 00:15 BP 151 / 99; Pulse 115; Resp 16; Pulse Ox 97% on R/A; jb4 01:15 BP 140 / 87; Pulse 119; Resp 18; Pulse Ox 94% ; jb4 02:15 BP 100 / 63; Pulse 118; Resp 16; Pulse Ox 97% on R/A; jb4 03:15 BP 95 / 60; Pulse 120; Resp 17; Pulse Ox 94% on R/A; jb4 04:00 BP 103 / 63; Pulse 118; Resp 18; Temp 99.2(TE); Pulse Ox 95% ; jb4 03/03 22:57 Body Mass Index 26.14 (80.29 kg, 175.26 cm) hb ED Course: 03/03 22:53 Patient arrived in ED. jj6 22:59 Triage completed. hb 22:59 Arm band placed on. hb 23:08 Boy Flores MD is Attending Physician. juani 23:15 Patient has correct armband on for positive identification. Bed in low position. Call jb4 light in reach. Side rails up X 1. Client placed on continuous cardiac and pulse oximetry monitoring. NIBP monitoring applied. 23:20 Urine Culture Sent. hb 23:35 CT Stone Protocol In Process Unspecified. EDMS 23:39 Yifan Stout, RN is Primary Nurse. as6 23:44 Inserted saline lock: 18 gauge in right antecubital area, using aseptic technique. jb4 Blood collected. 23:44 Initial lab(s) drawn, by me, sent to lab. First set of blood cultures drawn by me. jb4 12 00:07 Inserted saline lock: 20 gauge in left antecubital area, using aseptic technique. Blood hb collected. 00:07 Second set of blood cultures drawn. hb 00:58 Dino Dupree MD is Hospitalizing Provider. juani 04:15 No provider procedures requiring assistance completed. Patient admitted, IV remains in jb4 place. Administered Medications: 00:06 Not Given (Physician Discretion): LevOfloxacin 750 mg PO once jb4 00:17 Drug: NS 0.9% 1000 ml Route: IV; Rate: 1 bolus; Site: right antecubital; jb4 00:17 Drug: Rocephin (cefTRIAXone) 2 grams {Note: Administered in 50ml on NS per providers jb4 instruction.} Route: IV; Rate: per protocol; Site: right antecubital; 00:17 Drug: levofloxacin 750 mg Volume: 150 ml; Route: IVPB; Infused Over: 90 mins; Site: jb4 left antecubital; 02:03 Drug: Lactated Ringers Solution 1000 ml Route: IV; Rate: 100 ml/hr; Site: left jb4 antecubital; 02:04 Not Given (Other Intervention Used): Tums (calcium carbonate) Chewable Tablet 800 mg PO jb4 once 02:14 Drug: Tums (calcium carbonate) Chewable Tablet 1000 mg Route: PO; jb4 Outcome: 00:59 Decision to Hospitalize by Provider. juani 04:16 Admitted to ER Hold. Please see [facility] for further documentation. jb4 04:16 Condition: stable 04:16 Discharge instructions given to patient, family, Instructed on the need for admit, Demonstrated understanding of follow-up care. 15:48 Patient left the ED. ss Signatures: Dispatcher [employer] EDBoy Leiva MD MD cha Smirch, Shelby, JACK RN ss Jessica Simon RN RN Tito Holbrook RN RN jb4 Chiquis Garcia jj6 Yifan Stout RN RN as6 Corrections: (The following items were deleted from the chart) 04:14 04:00 Reassessment: Patient appears in no apparent distress at this time. Patient jb4 and/or family updated on plan of care and expected duration. Pain level reassessed. Patient is alert, oriented x 3, equal unlabored respirations, skin warm/dry/pink. jb4
--- NOTE | 2022-03-04 01:01 | EDPHYS ---
Physician Documentation [facility] Name: Addison Kaiser Age: 66 yrs Sex: Male : 1955 Arrival Date: 03/03/2022 Time: 22:53 Bed 5 Private MD: ED Physician Boy Flores HPI: 03/04 00:51 This 66 yrs old Male presents to ER via Ambulatory with complaints of UTI juani symptoms. 00:51 The patient presents with urinary symptoms, dysuria, urinary frequency, hesitancy to juani initiate urine stream. Onset: The symptoms/episode began/occurred 2 day(s) ago. Modifying factors: The symptoms are alleviated by remaining still, the symptoms are aggravated by nothing. Associated signs and symptoms: The patient has no apparent associated signs or symptoms. Severity of symptoms: At their worst the symptoms were mild, moderate, in the emergency department the symptoms are unchanged. The patient has not experienced similar symptoms in the past. Historical: - Allergies: 03/03 22:59 No Known Allergies; hb ROS: 03/04 00:53 Eyes: Negative for injury, pain, redness, and discharge, ENT: Negative for injury, juani pain, and discharge, Neck: Negative for injury, pain, and swelling, Respiratory: Negative for shortness of breath, cough, wheezing, and pleuritic chest pain, Abdomen/GI: Negative for abdominal pain, nausea, vomiting, diarrhea, and constipation, Back: Negative for injury and pain, MS/Extremity: Negative for injury and deformity, Skin: Negative for injury, rash, and discoloration, Neuro: Negative for headache, weakness, numbness, tingling, and seizure, Psych: Negative for depression, anxiety, suicide ideation, homicidal ideation, and hallucinations, Allergy/Immunology: Negative for hives, rash, and allergies, Endocrine: Negative for neck swelling, polydipsia, polyuria, polyphagia, and marked weight changes, Hematologic/Lymphatic: Negative for swollen nodes, abnormal bleeding, and unusual bruising. Cardiovascular: Positive for palpitations. : Positive for urinary symptoms, urinary frequency, small amounts, hematuria, burning with urination, difficulty urinating, foul smelling urine. Exam: 00:53 Constitutional: This is a well developed, well nourished patient who is awake, alert, juani and in no acute distress. Head/Face: Normocephalic, atraumatic. Eyes: Pupils equal round and reactive to light, extra-ocular motions intact. Lids and lashes normal. Conjunctiva and sclera are non-icteric and not injected. Cornea within normal limits. Periorbital areas with no swelling, redness, or edema. ENT: Nares patent. No nasal discharge, no septal abnormalities noted. Tympanic membranes are normal and external auditory canals are clear. Oropharynx with no redness, swelling, or masses, exudates, or evidence of obstruction, uvula midline. Mucous membranes moist. Neck: Trachea midline, no thyromegaly or masses palpated, and no cervical lymphadenopathy. Supple, full range of motion without nuchal rigidity, or vertebral point tenderness. No Meningismus. Chest/axilla: Normal chest wall appearance and motion. Nontender with no deformity. No lesions are appreciated. Respiratory: Lungs have equal breath sounds bilaterally, clear to auscultation and percussion. No rales, rhonchi or wheezes noted. No increased work of breathing, no retractions or nasal flaring. Abdomen/GI: Soft, non-tender, with normal bowel sounds. No distension or tympany. No guarding or rebound. No evidence of tenderness throughout. Back: No spinal tenderness. No costovertebral tenderness. Full range of motion. Male : Normal genitalia with no discharge or lesions. Skin: Warm, dry with normal turgor. Normal color with no rashes, no lesions, and no evidence of cellulitis. MS/ Extremity: Pulses equal, no cyanosis. Neurovascular intact. Full, normal range of motion. Neuro: Awake and alert, GCS 15, oriented to person, place, time, and situation. Cranial nerves II-XII grossly intact. Motor strength 5/5 in all extremities. Sensory grossly intact. Cerebellar exam normal. Normal gait. Psych: Awake, alert, with orientation to person, place and time. Behavior, mood, and affect are within normal limits. 00:53 Cardiovascular: Rate: tachycardic, actual rate is 113 bpm, Rhythm: regular, Pulses: Pulses are 4+ in bilateral radial, brachial, femoral, popliteal, posterior tibial and and dorsalis pedis arteries.. Heart sounds: murmur, not appreciated, rub, not appreciated, gallop, not appreciated, S1, normal, Edema: is not appreciated, JVD: is not appreciated. Vital Signs: 03/03 22:57 BP 146 / 93; Pulse 113; Resp 16; Temp 99(TE); Pulse Ox 97% on R/A; Weight 80.29 kg; hb Height 5 ft. 9 in. (175.26 cm); Pain 5/10; 03/04 00:15 BP 151 / 99; Pulse 115; Resp 16; Pulse Ox 97% on R/A; jb4 01:15 BP 140 / 87; Pulse 119; Resp 18; Pulse Ox 94% ; jb4 02:15 BP 100 / 63; Pulse 118; Resp 16; Pulse Ox 97% on R/A; jb4 03:15 BP 95 / 60; Pulse 120; Resp 17; Pulse Ox 94% on R/A; jb4 04:00 BP 103 / 63; Pulse 118; Resp 18; Temp 99.2(TE); Pulse Ox 95% ; jb4 03/03 22:57 Body Mass Index 26.14 (80.29 kg, 175.26 cm) hb MDM: 03/03 23:08 Patient medically screened. [facility] 03/04 00:56 Differential diagnosis: nonspecific abdominal pain, UTI, urinary retention, Espinal juani catheter problem, prostatitis, urethritis. Data reviewed: vital signs, nurses notes, lab test result(s), radiologic studies, CT scan. Data interpreted: rotor pilot: rate is 113 beats/min, rhythm is regular, Pulse oximetry: on room air. Test interpretation: by ED physician or midlevel provider:. Counseling: I had a detailed discussion with the patient and/or guardian regarding: the historical points, exam findings, and any diagnostic results supporting the discharge/admit diagnosis, lab results, radiology results, the need for further work-up and treatment in the hospital. 03/03 23:12 Order name: CBC with Diff; Complete Time: 00:28 [facility] 03/03 23:12 Order name: Comprehensive Metabolic Panel; Complete Time: 00:51 [facility] 03/03 23:12 Order name: Blood Culture Adult (2) [facility] 03/03 23:12 Order name: Urine Culture [facility] 03/03 23:12 Order name: Lactate w/ 2H reflex if indic.; Complete Time: 00:51 juani 03/03 23:17 Order name: Urine Dipstick-Ancillary; Complete Time: 00:28 EDMO 03/03 23:12 Order name: CT Stone Protocol juani 03/04 01:46 Order name: Urine Microscopic Only; Complete Time: 04:28 la1 03/04 06:32 Order name: SARS RAPID eb 03/04 07:23 Order name: SARS-COV-2 Antigen Rapid EDMO 03/03 23:12 Order name: Urine Dipstick-Ancillary (obtain specimen); Complete Time: 23:20 juani Administered Medications: 00:06 Not Given (Physician Discretion): LevOfloxacin 750 mg PO once jb4 00:17 Drug: NS 0.9% 1000 ml Route: IV; Rate: 1 bolus; Site: right antecubital; jb4 00:17 Drug: Rocephin (cefTRIAXone) 2 grams {Note: Administered in 50ml on NS per providers jb4 instruction.} Route: IV; Rate: per protocol; Site: right antecubital; 00:17 Drug: levofloxacin 750 mg Volume: 150 ml; Route: IVPB; Infused Over: 90 mins; Site: jb4 left antecubital; 02:03 Drug: Lactated Ringers Solution 1000 ml Route: IV; Rate: 100 ml/hr; Site: left jb4 antecubital; 02:04 Not Given (Other Intervention Used): Tums (calcium carbonate) Chewable Tablet 800 mg PO jb4 once 02:14 Drug: Tums (calcium carbonate) Chewable Tablet 1000 mg Route: PO; jb4 Disposition Summary: 03/04/22 00:59 Hospitalization Ordered Provider: Dino Dupree cha Condition: Fair juani Problem: new juani Symptoms: have improved juani Bed/Room Type: Standard juani Hospitalization Status: Inpatient Admission(03/04/22 01:18) juani Location: Telemetry/MedSurg (Inpatient)(03/04/22 15:22) Room Assignment: 229(03/04/22 15:22) Diagnosis - Fever, unspecified juani - UTI/ Urinary tract infection, site not specified juani - Acute prostatitis juani - Weakness juani - Elevated white blood cell count juani - Sepsis, unspecified organism juani Forms: - Medication Reconciliation Form juani - SBAR form juani Signatures: Dispatcher [employer] EDMS Boy Florse MD MD cha Smirch, Shelby, RN RN ss Lopez Gamez, ADRIEN-C EXHIBIT CLEANER-Cla1 Tamara Montero RN RN Jessica Simon RN RN hb Bryson Tito, RN RN jb4 Corrections: (The following items were deleted from the chart) 01:18 00:59 Observation juani juani 01:18 00:59 Telemetry/MedSurg (observation) juani juani 01:18 00:59 juani juani 02:22 01:18 Telemetry/MedSurg (Inpatient) juani cg 02: 01:18 juani cg 15: 02:22 [facility] ER HOLD cg ss 15: 02:22 ERHOLD- cg ss
--- NOTE | 2022-03-04 01:50 | P.HP ---
Certification for Inpatient Patient admitted to: Inpatient With expected LOS: >2 Midnights Patient will require the following post-hospital care: None Practitioner: I am a practitioner with admitting privileges, knowledge of patient current condition, hospital course, and medical plan of care. Services: Services provided to patient in accordance with Admission requirements found in Title 42 Section 412.3 of the Code of Federal Regulations <NickyaudraLopez Priest - Last Filed: 03/04/22 01:47> Patient History Date of Service: 03/04/22 Reason for admission: UTI, sepsis History of Present Illness: 66-year-old male with history of BPH presents to the emergency department for body aches, low back pain, urinary frequency. He was evaluated here in the emergency department labs were significant for leukocytosis with a white blood cell count of 14.5 he was noted to be tachycardic as well urine with CT abdomen pelvis without contrast was performed which identified no acute abdominal pelvic findings, no urinary tract calculi, colonic diverticulosis without diverticulitis, prostatomegaly, bilateral L5 pars defect. Grade 1 anterior listhesis of L5 on S1. 1+ leukoesterase patient meets criteria for sepsis given suspected UTI, tachycardia, leukocytosis he was started on Levaquin in the emergency department, had a similar admission in 2018 previous urine culture reviewedsensitive to Levaquin. - Past Medical/Surgical History Diabetic: No -: BPH -: Truamatic Brain Injury Psychosocial/ Personal History: Patient lives at home with his , is retired. - Family History Father Notes: Heart attack; Parkinsons Mother -: Cancer Notes: Bone Cancer - Social History Smoking Status: Never smoker Alcohol use: Yes CD- Drugs: No Caffeine use: Yes Place of Residence: Home <Lopez Gamez - Last Filed: 03/04/22 01:47> Date of Service: 03/04/22 <Dino Dupree - Last Filed: 03/04/22 15:13> Allergies No Known Allergies Allergy (Verified 12/23/17 13:59) Home Medications: Tamsulosin [Flomax*] 0.4 mg PO BEDTIME #30 cap 12/26/17 levoFLOXacin [Levaquin*] 500 mg PO DAILY #7 tab 12/26/17 Review of Systems 10-point ROS is otherwise unremarkable General: Chills, Malaise Genitourinary: Frequency, Urgency <Lopez Gamez - Last Filed: 03/04/22 01:47> Physical Examination - Physical Exam General: Alert, In no apparent distress, Oriented x3 HEENT: Atraumatic, PERRLA, Mucous membr. moist/pink, EOMI, Sclerae nonicteric Neck: Supple, 2+ carotid pulse no bruit, No LAD, Without JVD or thyroid abnormality Respiratory: Clear to auscultation bilaterally, Normal air movement Cardiovascular: Regular rate/rhythm, Normal S1 S2 Capillary refill: <2 Seconds Gastrointestinal: Normal bowel sounds, No tenderness Musculoskeletal: No tenderness Integumentary: No rashes Neurological: Normal speech, Normal strength at 5/5 x4 extr, Normal tone, Normal affect - Studies Laboratory Data (last 24 hrs) 03/03/22 23:44: Sodium 136, Potassium 3.8, BUN 24 H, Creatinine 1.26, Glucose 103, Total Bilirubin 0.6, AST 12 L, ALT 24, Alkaline Phosphatase 55 03/03/22 23:44: WBC 14.50 H, Hgb 15.6, Hct 46.0, Plt Count 221 <Lopez Gamez - Last Filed: 03/04/22 01:47> - Studies Laboratory Data (last 24 hrs) 03/03/22 23:44: Sodium 136, Potassium 3.8, BUN 24 H, Creatinine 1.26, Glucose 103, Total Bilirubin 0.6, AST 12 L, ALT 24, Alkaline Phosphatase 55 03/03/22 23:44: WBC 14.50 H, Hgb 15.6, Hct 46.0, Plt Count 221 <Dino Dupree - Last Filed: 03/04/22 15:13> Assessment and Plan - Plan Assessment: Sepsis secondary to UTI BPH Plan: Sepsis secondary to UTI: SIRS criteria present including leukocytosis, tachycardia, source of infectionUTI. Given Levaquin in ED, lactate less than 2 no significant hypotension. Blood and urine culture obtained, previous urine culture reviewed. BPH: Continue Flomax DVT PPX: Lovenox Code status: Full Discharge Plan: Home Plan to discharge in: 48 Hours - Advance Directives Does patient have a Living Will: No Does patient have a Durable POA for Healthcare: No - Code Status/Comfort Care Code Status Assessed: Yes (Full code) Critical Care: No Time Spent Managing Pts Care (In Minutes): 55 <Lopez Gamez - Last Filed: 03/04/22 01:47> Physician Review: Patient Assessed, Agree with Above Assessment and Plan <Dino Dupree - Last Filed: 03/04/22 15:13>
[2022-03-04] MEDS ORDERED: Ringers Lactate 1,000 ML IV ONE ×2 (01:57→12:08)
[2022-03-04] MEDS ORDERED: CALCIUM CARBONATE CHEW 500MG TAB ONE (02:08)
[2022-03-04 02:22] LABS: Urine Bacteria <20 /HPF (<20); Urine Mucus Slight /HPF (None Seen)
[2022-03-04] MEDS ORDERED: HYDROCODONE/APAP 5/325 MG TAB PO PRN (04:24)
[2022-03-04] MEDS ORDERED: ONDANSETRON 4 MG/2 ML VIAL IV PRN (04:24)
[2022-03-04] MEDS: Ringers Lactate 1,000 ML IV SCH ×4 (04:24→21:15)
[2022-03-04 04:27] VITALS: BMI 26.1
[2022-03-04 07:23] LABS: SARS-CoV-2 Antigen Rapid Res Negative (Negative)
[2022-03-04] MEDS ORDERED: PNEUMOCOCCAL VACCINE 0.5 ML IMVAC ONE (08:00)
[2022-03-04] MEDS ORDERED: ENOXAPARIN 40 MG/0.4 ML SQ SCH (09:00)
[2022-03-04] MEDS ORDERED: Levofloxacin 750mg IV 750 MG/150 ML BAG IV SCH (09:00)
--- NOTE | 2022-03-04 09:10 | RAD REPORT ---
EXAM DESCRIPTION: Stone Protocol CLINICAL HISTORY: 66 years Male Flank pain, kidney stone suspected COMPARISON: None TECHNIQUE: CT of the abdomen and pelvis without contrast. All CT scans at this facility use dose modulation, iterative reconstruction, and/or weight based dosi ng when appropriate to reduce radiation dose to as low as reasonably achievable. FINDINGS: Lower thorax: Lung bases are clear Abdomen: Stomach: Within normal limits Liver: No focal lesions. No intrahepatic ductal distention. Gallbladder: Nondistended Pancreas: Within normal limits Spleen: Within normal limits Right kidney: No hydronephrosis. No renal or ureteral calculi. Left kidney: No hydronephrosis. No renal or ureteral calculi. Adrenal glands: Within normal limits Vascular structures: Within normal limits (although limited evaluation on noncontrast exam). Lymph nodes: No lymphadenopathy by size criteria Pelvis: Small bowel: No significant distention. Appendix: Within normal limits Colon: No distention or acute pericolonic edema. Colonic diverticulosis. Peritoneum: No free intraperitoneal fluid or air. Bones: No acute bone findings. Bilateral L5 pars defects. Grade 1 anterolisthesis of L5 on S1. Bladder: Unremarkable. Reproductive organs: Prostatomegaly. Note that evaluation of the bowel and solid organs is somewhat limited due to lack of intravenous and oral contrast. IMPRESSION: 1. No acute abdominopelvic findings. 2. No urinary tract calculi. 3. Colonic diverticulosis without diverticulitis. 4. Prostatomegaly. Correlate with PSA. 5. Bilateral L5 pars defects. Grade 1 anterolisthesis of L5 on S1. Electronically signed by: Barry Rosenthal MD 03/03/2022 11:48 PM [employer] Due to temporary technical issues with the PACS/Fluency reporting system, reports are being signed by the in house radiologists without review as a courtesy to insure prompt reporting. The interpreting radiologist is fully responsible for the content of the report.
[2022-03-04] MEDS ORDERED: ENOXAPARIN 40 MG/0.4 ML SQ ONE (10:52)
[2022-03-04] MEDS ORDERED: ACETAMINOPHEN 500 MG TAB ONE (12:07)
[2022-03-04] MEDS: ACETAMINOPHEN 500 MG TAB PO PRN ×2 (12:28→19:42)
[2022-03-04] MEDS: TAMSULOSIN 0.4 MG SR CAP PO SCH (19:42)
[2022-03-04] MEDS ORDERED: IBUPROFEN 400 MG TAB PO ONE (21:24)
[2022-03-04] MEDS ORDERED: IBUPROFEN 200 MG TAB PO ONE (21:24)
[2022-03-05] MEDS: Ringers Lactate 1,000 ML IV SCH ×3 (00:24→18:47)
[2022-03-05] MEDS: Levofloxacin 750mg IV 750 MG/150 ML BAG IV SCH (00:29)
[2022-03-05 03:52] LABS: Absolute Lymphocytes (CBC) 0.8 K/uL (0.7-4.9); Hematocrit 40.4 % (39.6-49.0); Lymphocytes % 5.7 % (15.3-44.8); MCV 89.5 fL (80-100); RBC Red Blood Cell Count 4.52 M/uL (4.33-5.43)
[2022-03-05 04:09] LABS: Albumin 3.2 g/dL (3.4-5.0); Bilirubin Total 1.5 mg/dL (0.2-1.0); Potassium 3.9 mmol/L (3.5-5.1); Protein, Total 6.6 g/dL (6.4-8.2)
[2022-03-05] MEDS: ACETAMINOPHEN 500 MG TAB PO PRN ×2 (08:04→17:16)
[2022-03-05] MEDS ORDERED: KETOROLAC 30 MG/ML INJ IV ONE (11:48)
--- NOTE | 2022-03-05 18:06 | P.PN ---
Subjective Date of Service: 03/05/22 Chief Complaint: UTI, sepsis Overnight, he intermittently spiked fevers. He reports chills and dysuria. He states that he still feels poorly, but he feels that he is slightly better than yesterday. Review of Systems 10-point ROS is otherwise unremarkable General: Fever, Chills, Malaise Genitourinary: Dysuria Physical Examination - Vital Signs Temperature: 102.4 F Blood Pressure: 117/72 Pulse: 114 Respirations: 16 Pulse Ox (%): 94 - Physical Exam General: Alert, In no apparent distress, Oriented x3 HEENT: Atraumatic, Mucous membr. moist/pink, EOMI, Sclerae nonicteric Neck: JVD not distended Respiratory: Clear to auscultation bilaterally, Normal air movement Cardiovascular: Normal pulses, No gallops, No rubs, No murmurs Gastrointestinal: Normal bowel sounds, Soft and benign, Non-distended, No tenderness, No rebound, No guarding Musculoskeletal: No clubbing Integumentary: No rashes Neurological: Normal speech, Cranial nerves 3-12 intact, Normal affect Assessment And Plan - Plan # Sepsis likely secondary to Gram-Negative Urinary Tract Infection He meets sepsis criteria based on temperature > 100.9 F, HR > 90 bpm, and WBC > 12,000, and the suspected source is urinary. - Sepsis order set was initiated - Initial Lactate was 0.9 - Blood cultures drawn before antibiotics were given - Broad spectrum antibiotics started: Levofloxacin - In regards to fluids: - 30 mL/kg of IV fluids was not administered given SBP > 90, MAP > 65, lactic acid < 4 # Thrombocytopenia Plt count: 221,000 -> 119,000 - Possibly secondary to sepsis - Hold off on pharmacologic VTE prophylaxis - SCDs ordered # Benign Prostatic Hyperplasia # History of Peyronie's Disease - Continue home tamsulosin Dino Dupree M.D.
[2022-03-05] MEDS: TAMSULOSIN 0.4 MG SR CAP PO SCH (20:48)
[2022-03-06] MEDS: Levofloxacin 750mg IV 750 MG/150 ML BAG IV SCH (00:23)
[2022-03-06 03:47] LABS: Absolute Lymphocytes (CBC) 0.6 K/uL (0.7-4.9); Hematocrit 35.4 % (39.6-49.0); Lymphocytes % 4.2 % (15.3-44.8); MCV 88.4 fL (80-100); MPV 7.6 fL (7.6-11.3)
[2022-03-06 04:17] LABS: Albumin 2.6 g/dL (3.4-5.0); Bilirubin Total 1.3 mg/dL (0.2-1.0); Potassium 3.6 mmol/L (3.5-5.1); Protein, Total 5.9 g/dL (6.4-8.2)
[2022-03-06] MEDS ORDERED: POTASSIUM CL SA 10 MEQ TAB PO ONE (04:41)
[2022-03-06] MEDS: Ringers Lactate 1,000 ML IV SCH ×3 (06:32→19:59)
[2022-03-06] MEDS ORDERED: PIPER TAZO 3.375 GM in NA CHLORIDE 0.9% 100 ML IV SCH (07:00)
[2022-03-06] MEDS: Meropenem 1,000 MG in NA CHLORIDE 0.9% 100 ML IV SCH ×2 (07:45→17:24)
--- NOTE | 2022-03-06 14:31 | P.PN ---
Subjective Date of Service: 03/06/22 Chief Complaint: UTI, sepsis Overnight, he intermittently spiked fevers. He states that his chills and dysuria are slightly improved. His urine culture has returned positive for ESBL. Dr. Castañeda has been consulted. Review of Systems 10-point ROS is otherwise unremarkable General: Fever, Chills, Sweats Genitourinary: Dysuria Physical Examination - Vital Signs Temperature: 99.2 F Blood Pressure: 131/76 Pulse: 89 Respirations: 20 Pulse Ox (%): 98 - Studies Microbiology Data (last 24 hrs): 03/03/22 23:15 Clean Catch Urine [place] Count - Final >100,000 CFU/ML. 03/03/22 23:15 Clean Catch Urine - Final Escherichia Coli Esbl Gram Neg Zoran Assessment And Plan - Plan - Physical Exam General: Alert, In no apparent distress, Oriented x3 HEENT: Atraumatic, Mucous membr. moist/pink, EOMI, Sclerae nonicteric Neck: JVD not distended Respiratory: Clear to auscultation bilaterally, Normal air movement Cardiovascular: Normal pulses, No gallops, No rubs, No murmurs Gastrointestinal: Normal bowel sounds, Soft and benign, Non-distended, No tenderness, No rebound, No guarding Musculoskeletal: No clubbing Integumentary: No rashes Neurological: Normal speech, Cranial nerves 3-12 intact, Normal affect # Sepsis likely secondary to ESBL Escherichia Coli Urinary Tract Infection He meets sepsis criteria based on temperature > 100.9 F, HR > 90 bpm, and WBC > 12,000, and the suspected source is urinary. - Sepsis order set was initiated - Initial Lactate was 0.9 - Blood cultures drawn before antibiotics were given - Broad spectrum antibiotics started: Levofloxacin -> Meropenem - In regards to fluids: - 30 mL/kg of IV fluids was not administered given SBP > 90, MAP > 65, lactic acid < 4 - Consulted Infectious Diseases and spoke with Dr. Castañeda - recommendations appreciated - Recommended 14 days of carbapenem (meropenem inpatient, ertapenem as an outpatient) - Requested PICC line # Thrombocytopenia Plt count: 221,000 -> 119,000 - Possibly secondary to sepsis - Hold off on pharmacologic VTE prophylaxis - SCDs ordered # Benign Prostatic Hyperplasia # History of Peyronie's Disease - Continue home tamsulosin Dino Dupree M.D.
[2022-03-06] MEDS: TAMSULOSIN 0.4 MG SR CAP PO SCH (19:58)
--- NOTE | 2022-03-06 22:35 | RAD REPORT ---
EXAM DESCRIPTION: RAD - Chest Single View - 03/06/2022 10:28 pm CLINICAL HISTORY: PICC Placement COMPARISON: 06/29/2017 FINDINGS: Lines: PICC tip overlies the SVC in satisfactory position . Lungs: No evidence of edema or pneumonia. Pleural: No significant pleural effusions or pneumothorax. Cardiac: The heart size is within normal limits. Mediastinum: Within normal limits. Bones: No acute fractures. Other: None IMPRESSION: No acute cardiopulmonary disease. PICC in satisfactory position.
[2022-03-07] MEDS: Meropenem 1,000 MG in NA CHLORIDE 0.9% 100 ML IV SCH ×2 (01:12→08:11)
[2022-03-07 03:41] LABS: Absolute Lymphocytes (CBC) 1.2 K/uL (0.7-4.9); Hematocrit 31.1 % (39.6-49.0); MCV 89.1 fL (80-100); MPV 7.9 fL (7.6-11.3); RBC Red Blood Cell Count 3.49 M/uL (4.33-5.43)
[2022-03-07 04:02] LABS: Potassium 3.7 mmol/L (3.5-5.1)
[2022-03-07] MEDS ORDERED: POTASSIUM CL SA 10 MEQ TAB PO ONE ×2 (04:17→10:52)
[2022-03-07] MEDS: Ringers Lactate 1,000 ML IV SCH (06:19)
[2022-03-07 10:50] VITALS: O2SAT 97
--- NOTE | 2022-03-07 12:19 | P.CNS ---
Date of Consult: 03/07/22 This is a 66-year-old male last consulted for urinary tract infection patient has significant history of benign prostatic hypertrophy coming into the emergency room with body aches, low back pain, urinary frequency. Patient has improved since he has been on antibiotic denies any abdominal pain chest pain back pain patient is currently getting meropenem for urinary tract infection secondary to E. coli ESBL patient will be discharged home on Invanz as he is improved significantly since admission Past medical history benign prostatic hypertrophy Traumatic brain injury Anemia of chronic disease Family history heart attacks and Parkinson Social history non-smoker nondrinker Medication meropenem see MAR for further medication Allergies no known drug allergies Review system 10 point review was performed Physical exam: Patient laying in bed at the bedside not in any acute cardiopulmonary distress Vital signs reviewed HEENT unremarkable Neck: Supple, no dermatopathy Lungs: Clear to auscultation Heart S1-S2 regular Abdomen: Soft, bowel sound present Extremity: No edema WBC 10.2 hemoglobin 10.9 platelets 115 BUN of 15 creatinine of 0.8 Albumin level is 2.6 Urine culture showing E. coli ESBL Assessment and plan urosepsis secondary to E. coli ESBL currently on meropenem recommend to continue 2 weeks of treatment with patient benign prostatic hypertrophy can be switched to Invanz once a day Anemia of chronic disease Thrombocytopenia Moderate protein calorie malnourishment Monitor signs of infection with WBC and fever trends Patient was given instruction regarding to take care of his PICC line avoid alcohol and tobacco use Thank you for consult
[2022-03-07 16:33] VITALS: BP 115/70; TEMP 99.4
== END 2022-03-07 16:56 | disposition home or self-care (01) | DRG 872 ==
LOC: ER 22:50 → ERHOLD 03-04 01:37 → 2ND 03-04 15:41
PROVIDERS: ADMIT Internal Medicine; ATTEND Hospitalist
PROC: 02HV33Z Insertion of Infusion Device into Superior Vena Cava, Percutaneous Approach (ICD-10-PCS; principal; 2022-03-06)
PROC: 3E04329 Introduction of Other Anti-infective into Central Vein, Percutaneous Approach (ICD-10-PCS; 2022-03-06)
DX: A41.51 Sepsis due to Escherichia coli [E. coli] (principal); E44.0 Moderate protein-calorie malnutrition; N39.0 Urinary tract infection, site not specified; R00.0 Tachycardia, unspecified; N40.0 Benign prostatic hyperplasia without lower urinary tract symptoms; D69.6 Thrombocytopenia, unspecified; Z20.822 Contact with and (suspected) exposure to COVID-19; Z68.26 Body mass index [BMI] 26.0-26.9, adult
CPT/HCPCS: 36415; 36569; 71045; 74176; 76377; 80048; 80053; 81003; 81015; 83605; 85025; 87040; 87077; 87086; 87088; 87186; 87811; 99285; J0696; J1650; J2185; J2543; J7030; J7120

== ENCOUNTER 2022-10-22 12:41 | Emergency (ER) | payer OTHER ==
--- OUTSIDE RECORDS SUMMARY | 2022-10-22 12:44 | XMS REPORT | Continuity of Care Document ---
:1955 Author Organization [facility] t Address [address] [place] [address] Care Team Providers Name Role Phone Lab, [facility] Pob I Attending Clinician Unavailable Chris Hobson Attending Clinician CHRIS VENEGAS Attending Clinician Unavailable Doctor Unassigned, [facility] Attending Clinician Unavailable Payers Payer Name Policy Type Policy Number Effective Date Expiration Date S ource Problems This patient has no known problems. Allergies, Adverse Reactions, Alerts Allergy Allergy Status Severity Reaction(s) Onset Inactive Treating Comm ents Source Name Type Date Date Clinician NO KNOWN Drug Active Univers ALLERGIE Class ity of S [facility] Social History Social Habit Start Date Stop Date Quantity Comments [facility] to [facility] sure [facility] Smoking Status Start Date Stop Date Source Unknown if ever smoked Universit y [facility] Medications This patient has no known medications. Procedures This patient has no known procedures. Encounters Start End Encounter Admission Attending Care Care Encounter Source Date/Time Date/Time Type Type Clinicians Facility Department ID 2019-12-24 2019-12-24 Laboratory Lab, Ad[facility] [place] [id number] 19:04:37 19:24:37 Only Edilson Pob I [facility] [id number] [place] [id number] [place] [phone] [address] 2019-12-24 2019-12-24 Laboratory Lab, Adc Fam Pob I [facility] [id number] [facility] 19:04:37 19:24:37 Only Chris Venegas [id number] ity of [place] [id number] Vipul as Professio [phone] Wi dical [facility] [address] 2019-12-24 2019-12-24 Outpatient R [facility] [id number] Univers 19:20:00 19:20:00 CHRIS ity of [facility] 2019-12-24 2019-12-24 Letter Doctor CHANA [id number] 00:00:00 00:00:00 (Out) Unassigned, TIM [id number] [facility] [phone] [facility] 2019-12-24 2019-12-24 Letter Doctor CHANA [id number] Univers 00:00:00 00:00:00 (Out) Unassigned, TIM [id number] ity of [facility] [id number] Vipul as [phone] [place] [id number] [address] Results This patient has no known results.
[2022-10-22] MEDS ORDERED: TDAP (DIPHTH,PERTUSS(ACELL),TET VAC) 0.5 ML VIAL IMVAC ONE (14:28)
[2022-10-22] MEDS ORDERED: ACETAMINOPHEN 325 MG TABLET ONE (14:28)
--- NOTE | 2022-10-22 14:54 | RAD REPORT ---
EXAM DESCRIPTION: RAD - Hand Right 2 View - 10/22/2022 2:44 pm CLINICAL HISTORY: injury to R pinky Pain and swelling COMPARISON: No comparisons FINDINGS: Soft tissue swelling is seen affecting the fifth finger. No fracture or radiopaque foreign body is seen. No soft tissue gas.
[2022-10-22] MEDS ORDERED: LIDOCAINE 1% MPF 5 ML VIAL ONE (15:49)
[2022-10-22] MEDS ORDERED: HYDROCODONE/APAP 7.5/325 MG TAB ONE (15:57)
--- NOTE | 2022-10-22 16:08 | EDPHYS ---
Physician Documentation [facility] Name: Addison Kaiser Age: 66 yrs Sex: Male : 1955 Arrival Date: 10/22/2022 Time: 12:41 Bed 15 Private MD: ED Physician Bharat Ness HPI: 10/22 13:00 This 66 yrs old Male presents to ER via Ambulatory with complaints of Hand Pain. aj3 13:00 Patient with pain and bleeding to right fifth finger after trying to do house repairs aj3 hitting his hand on the glass. He reports his nail has come off partially. No reports of any other injury. He denies being diabetic or being anticoagulation.. 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 - Social history:: Smoking status: Patient denies any tobacco usage or history of. ROS: 13:10 Constitutional: Negative for fever, chills, and weight loss, Cardiovascular: Negative aj3 for chest pain, palpitations, and edema, Respiratory: Negative for shortness of breath, cough, wheezing, and pleuritic chest pain, Back: Negative for injury and pain. 13:10 MS/extremity: Positive for injury or acute deformity, pain, Right distal fifth digit. 13:10 Skin: Positive for laceration(s), Right fifth digit. Exam: 13:10 Constitutional: This is a well developed, well nourished patient who is awake, alert, aj3 and in no acute distress. Cardiovascular: Regular rate and rhythm with a normal S1 and S2. No gallops, murmurs, or rubs. Normal PMI, no JVD. No pulse deficits. Respiratory: Lungs have equal breath sounds bilaterally, clear to auscultation and percussion. No rales, rhonchi or wheezes noted. No increased work of breathing, no retractions or nasal flaring. Abdomen/GI: Soft, non-tender, with normal bowel sounds. No distension or tympany. No guarding or rebound. No evidence of tenderness throughout. Neuro: Awake and alert, GCS 15, oriented to person, place, time, and situation. Motor strength 5/5 in all extremities. Sensory grossly intact. Normal gait. 13:10 Musculoskeletal/extremity: Nails: partial avulsion, of the right little fingernail. 13:10 Skin: injury, laceration(s), 0.5 cm laceration to the nailbed. Vital Signs: 12:55 BP 129 / 92; Pulse 69; Resp 17; Temp 98.2; Pulse Ox 99% ; Weight 81.65 kg; Height 5 ft. ll1 9 in. ; Pain 7/10; 14:37 BP 127 / 87; Pulse 72; Resp 18; Pulse Ox 100% ; nj1 15:45 BP 126 / 82; Pulse 71; Resp 18; Pulse Ox 100% ; Pain 7/10; nj1 16:40 BP 124 / 91; Pulse 73; Resp 18; Pulse Ox 100% ; Pain 3/10; nj1 12:55 Body Mass Index 26.58 (81.65 kg, 175.26 cm) ll1 12:55 Pain Scale: Adult ll1 15:45 Pain Scale: Adult nj1 16:40 Pain Scale: Adult nj1 Laceration: 13:10 Wound Repair of subcutaneous laceration to right little fingernail. Minimal bleeding aj3 noted.. Distal neuro/vascular/tendon intact. Anesthesia: Digital block administered with 5 mls of 1% lidocaine. Wound prep: Moderate cleansing with hibiclenz by nurse. Skin closed with 1 5-0 Prolene using simple sutures and sterile technique. Dressed with Bacitracin, non-adherent dressing. Patient tolerated well. MDM: 13:15 Patient medically screened. aj3 16:00 Differential diagnosis: dislocation, open fracture, closed fracture, abrasion. Data aj3 reviewed: vital signs, nurses notes, radiologic studies, plain films. Independent interpretation of the following test(s) in the Emergency Department X-Ray: My interpretation is No fracture noted. Historians other than the Patient: Spouse/Significant Other: . Counseling: I had a detailed discussion with the patient and/or guardian regarding: the historical points, exam findings, and any diagnostic results supporting the discharge/admit diagnosis, the need for outpatient follow up, to return to the emergency department if symptoms worsen or persist or if there are any questions or concerns that arise at home. 10/22 13:49 Order name: Hand Right 2 View XRAY; Complete Time: 15:01 aj3 07/29 16:05 Order name: Finger Splint; Complete Time: 17:20 aj3 10/22 16:05 Order name: Dressing - Wound; Complete Time: 17:20 aj3 Administered Medications: 14:24 Drug: Acetaminophen PO 650 mg Route: PO; ld1 15:58 Follow up: Response: No adverse reaction nj1 14:24 Drug: Boostrix Tdap IM 0.5 ml Route: IM; Site: right deltoid; ld1 15:58 Follow up: Response: (VIS) Vaccine information sheet provided today. Questions and/or nj1 concerns addressed. VIS edition date: Oct 30, 2020.; No adverse reaction 15:49 Drug: Hydrocodone-Acetaminophen PO (7.5 mg-325 mg) 1 tabs Route: PO; nj1 16:40 Follow up: Response: No adverse reaction; Pain is decreased nj1 15:58 Drug: Lidocaine Infiltration (1 %) 5 mg {Note: Vial given to A Yoni SODA FLAKER for nj1 adminstration.} Route: Infiltration; 17:20 Not Given (Used triple abx as instructed by providerr): Bacitracin Topical Ointment nj1 (500 unit/g) 1 application Topical once Disposition: 10/23 13:36 Co-signature as Attending Physician, Bharat LIND was immediately available on-site ms3 in the Emergency Department for consultation in the care of the patient. Disposition Summary: 10/22/22 16:07 Discharge Ordered Location: Home aj3 Problem: new aj3 Symptoms: have improved aj3 Condition: Stable aj3 Diagnosis - Laceration without foreign body of right little finger with damage to nail, initial aj3 encounter Followup: aj3 - With: Private Physician - When: - Reason: Wound Recheck, Staple/Suture removal, Re-evaluation by your physician Followup: aj3 - With: Emergency Department - When: - Reason: Worsening of condition Discharge Instructions: - Discharge Summary Sheet aj3 - Laceration Care, Adult aj3 Forms: - Medication Reconciliation Form aj3 - Thank You Letter aj3 - Antibiotic Education aj3 - Prescription Opioid Use aj3 - Patient Portal Instructions aj3 Prescriptions: - Cephalexin 500 mg Oral Capsule - take 1 capsule by ORAL route every 8 hours for 7 days; 21 capsule; Refills: 0, aj3 Product Selection Permitted Signatures: Dispatcher [employer] Varghese Romero RN RN ll1 Ness, Bharat, DO VARGAS ms3 Charo Ness RN RN ld1 Olivia Vallejo, SODA FLAKER SODA FLAKER aj3 Teodora Gaytan RN RN nj1
--- NOTE | 2022-10-22 16:08 | ER ---
Nurse's Notes [facility] Name: Addison Kaiser Age: 66 yrs Sex: Male : 1955 Arrival Date: 10/22/2022 Time: 12:41 Bed 15 Private MD: Diagnosis: Laceration without foreign body of right little finger with damage to nail, initial encounter Presentation: 10/22 12:55 Chief complaint: Patient states: R hand 5th digit pain, laceration, pulled nailbed back ll1 1 hour [employer]. Coronavirus screen: Vaccine status: Patient reports receiving the 2nd dose of the covid vaccine. Client denies travel out of the [place] in the last 14 days. At this time, the client does not indicate any symptoms associated with coronavirus-19. Ebola Screen: Patient denies travel to an Ebola-affected area in the 21 days before illness onset. Initial Sepsis Screen: Does the patient meet any 2 criteria? No. Patient's initial sepsis screen is negative. Does the patient have a suspected source of infection? Yes: Skin breakdown/wound. Risk Assessment: Do you want to hurt yourself or someone else? Patient reports no desire to harm self or others. Onset of symptoms was October 22, 2022. 12:55 Method Of Arrival: Ambulatory ll1 12:55 Acuity: LILIANA 4 ll1 Triage Assessment: 12:58 General: Appears uncomfortable, Behavior is calm, cooperative, appropriate for age. ll1 Pain: Complains of pain in right hand Pain currently is 7 out of 10 on a pain scale. Quality of pain is described as aching, throbbing, Pain began 1 hour ago. Derm: Reports pain. Musculoskeletal: Circulation, motion, and sensation intact. Capillary refill < 3 seconds, laceration L hand 5th digit. Pulled nail from nail bed. No active bleeding. Injury Description: Avulsion. 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 - Social history:: Smoking status: Patient denies any tobacco usage or history of. Screenin:45 [facility] ED Fall Risk Assessment (Adult) History of falling in the last 3 months, nj1 including since admission No falls in past 3 months (0 pts) Confusion or Disorientation No (0 pts) Intoxicated or Sedated No (0 pts) Impaired Gait No (0 pts) Mobility Assist Device Used No (0 pt) Altered Elimination No (0 pt) Score/Fall Risk Level 0 - 2 = Low Risk Oriented to surroundings, Maintained a safe environment, Hourly rounding (assess needs \T\ fall precautionary measures) done. Abuse screen: Denies threats or abuse. Denies injuries from another. Nutritional screening: No deficits noted. Tuberculosis screening: No symptoms or risk factors identified. Assessment: 14:30 Reassessment: See triage assessment. nj1 15:45 Reassessment: Patient appears in no apparent distress at this time. No changes from [facility] previously documented assessment. Patient and/or family updated on plan of care and expected duration. Pain level reassessed. Patient is alert, oriented x 3, equal unlabored respirations, skin warm/dry/pink. Vital Signs: 12:55 BP 129 / 92; Pulse 69; Resp 17; Temp 98.2; Pulse Ox 99% ; Weight 81.65 kg; Height 5 ft. ll1 9 in. ; Pain 7/10; 14:37 BP 127 / 87; Pulse 72; Resp 18; Pulse Ox 100% ; nj1 15:45 BP 126 / 82; Pulse 71; Resp 18; Pulse Ox 100% ; Pain 7/10; nj1 16:40 BP 124 / 91; Pulse 73; Resp 18; Pulse Ox 100% ; Pain 3/10; nj1 12:55 Body Mass Index 26.58 (81.65 kg, 175.26 cm) ll1 12:55 Pain Scale: Adult ll1 15:45 Pain Scale: Adult nj1 16:40 Pain Scale: Adult vt1 ED Course: 12:45 Patient arrived in ED. ts1 12:52 Olivia Vallejo, MARTIN is PHCP. aj3 12:52 Bharat Ness DO is Attending Physician. aj3 12:54 Arm band placed on. ll1 12:56 Triage completed. ll1 14:12 Patient placed in an exam room, on a stretcher. ll1 14:21 Teodora Gaytan, JACK is Primary Nurse. nj1 14:45 Hand Right 2 View XRAY In Process Unspecified. EDMS 15:40 Wound care: to laceration located on right little fingernail was cleaned with soap and nj1 water, irrigated with normal saline, Patient tolerated well. 15:45 Provided Education on: fall precautions. nj1 15:45 Patient has correct armband on for positive identification. Bed in low position. Call nj1 light in reach. Adult w/ patient. 16:30 Dressings: non-adherent dressing x 1 right little finger Triple abx ointment and gauze. nj1 16:30 Finger splint applied to right little finger, secured with coban. nj1 16:45 Assist provider with laceration repair Set up tray. Performed by Olivia Vallejo NP. nj1 16:45 Patient did not have IV access during this emergency room visit. nj1 Administered Medications: 14:24 Drug: Acetaminophen PO 650 mg Route: PO; ld1 15:58 Follow up: Response: No adverse reaction nj1 14:24 Drug: Boostrix Tdap IM 0.5 ml Route: IM; Site: right deltoid; ld1 15:58 Follow up: Response: (VIS) Vaccine information sheet provided today. Questions and/or nj1 concerns addressed. VIS edition date: Oct 30, 2020.; No adverse reaction 15:49 Drug: Hydrocodone-Acetaminophen PO (7.5 mg-325 mg) 1 tabs Route: PO; nj1 16:40 Follow up: Response: No adverse reaction; Pain is decreased nj1 15:58 Drug: Lidocaine Infiltration (1 %) 5 mg {Note: Vial given to A Yoni DRY CLEANER for nj1 adminstration.} Route: Infiltration; 17:20 Not Given (Used triple abx as instructed by providerr): Bacitracin Topical Ointment nj1 (500 unit/g) 1 application Topical once Medication: 15:57 Vaccine Information Statement (VIS) provided today. Questions and/or concerns nj1 addressed. VIS edition date: October 30, 2020. Outcome: 16:07 Discharge ordered by . jus 16:40 Discharged to home ambulatory, with significant other. nj1 16:40 Condition: stable 16:40 Discharge instructions given to patient, significant other, Instructed on discharge instructions, follow up and referral plans. medication usage, wound care, Demonstrated understanding of instructions, follow-up care, medications, wound care, Prescriptions given X 1. 17:26 Patient left the ED. nj1 Signatures: Dispatcher [employer] Varghese Romero RN RN ll1 Charo Ness RN RN ld1 Olivia Vallejo, DRY CLEANER DRY CLEANER aj3 Teodora Gaytan RN RN nj1 Kala Emmanuel, PAS PAS ts1
[2022-10-22 17:30] VITALS: TEMP 98.2
[2022-10-22 17:32] VITALS: O2SAT 100
[2022-10-22 17:34] VITALS: BP 124/91
== END 2022-10-22 17:26 | disposition home or self-care (01) ==
LOC: ER 12:41
PROC: 0HQFXZZ Repair Right Hand Skin, External Approach (ICD-10-PCS; principal; 2022-10-22)
DX: S61.316A Laceration without foreign body of right little finger with damage to nail, initial encounter (principal)
CPT/HCPCS: 73120; 96372; 99285; 12001; J2001